=== PATIENT | male | born 1935 ===

== ENCOUNTER → 2021-07-29 12:55 | Outpatient (BNVA) | payer MEDICARE, SELFPAY | PROVIDERS: Visit Provider Surgery | DX: Z13.89 Encounter for screening for other disorder (principal) ==

== ENCOUNTER 2022-01-21 13:19 | Outpatient (REF) | payer MEDICARE, OTHER, SELFPAY ==
[2022-01-21 13:24] LABS: MANUAL DIFF FLAG NO
[2022-01-21 14:07] LABS: Basophils Absolute Auto 0.1 X10*3/uL (0.0-0.2); Basophils Percent Auto 0.6 % (0-2); Eosinophils Percent Auto 0.1 % (0-4); Hematocrit 33.4 % (42.0-52.0); Hemoglobin 10.8 g/dl (14.0-18.0); Imm Gran Abs Auto 0.07 X10*3/uL (0.00-0.03); Imm Gran Pct Auto 0.9 % (0.0-0.4); Lymphocytes Absolute Auto 0.9 X10*3/uL (1.2-4.9); Lymphocytes Percent Auto 11.1 % (20-40); Mean Corpuscular HGB Conc 32.3 g/dl (31.0-36.0); Mean Corpuscular Hemoglobin 28.7 pg (27.0-33.0); Mean Corpuscular Volume 88.8 fL (80.0-98.0); Mean Platelet Volume 10.8 fL (9.4-12.4); Monocytes Absolute Auto 1.2 X10*3/uL (0.1-1.2); Monocytes Percent Auto 15.6 % (2-11); Neutrophils Absolute Auto 5.6 x10*3/uL (2.0-8.3); Neutrophils Percent Auto 71.7 % (45-73); Platelet Count 216 X10*3/uL (160-400); Red Blood Count 3.76 X10*6/uL (4.60-5.80); Red Cell Distribution Width 17.1 % (11.0-16.0); White Blood Count 7.8 X10*3/uL (4.8-10.8)
[2022-01-21 14:12] LABS: Anion Gap 18 (12-20); Blood Urea Nitrogen 38 mg/dL (9-16); Calcium 9.1 mg/dL (8.4-10.2); Carbon Dioxide 27 mmol/L (22-29); Chloride 100 mmol/L (96-108); Estimated Glomerular Filt Rate > 60; Glucose Random 113 mg/dL (60-115); Potassium 4.3 mmol/L (3.3-5.1); Sodium 141 mmol/L (135-145)
== END 2022-01-21 13:20 | disposition home or self-care (01) ==
LOC: HO.HSH1N 13:19
PROVIDERS: Visit Provider Internal Medicine
DX: U07.1 COVID-19 (principal)
CPT/HCPCS: 36415; 80048; 85025

== ENCOUNTER → 2022-02-07 12:59 | Outpatient (BNVA) | payer MEDICARE, OTHER, SELFPAY | PROVIDERS: Visit Provider Urology | DX: N40.1 Benign prostatic hyperplasia with lower urinary tract symptoms (principal); N13.8 Other obstructive and reflux uropathy; R35.0 Frequency of micturition; R33.8 Other retention of urine; Z79.899 Other long term (current) drug therapy | CPT/HCPCS: Q3014 ==

== ENCOUNTER 2022-02-14 06:03 | Outpatient (REF) | payer MEDICARE, OTHER, SELFPAY ==
[2022-02-14 13:25] LABS: Folate 9.4 ng/mL (> or = 4.0)
[2022-02-14 13:30] LABS: Vitamin B12 589 pg/mL (200-900)
== END 2022-02-14 06:04 | disposition home or self-care (01) ==
LOC: HO.HSH3W 06:03
PROVIDERS: Visit Provider Nurse Practitioner
DX: R20.2 Paresthesia of skin (principal)
CPT/HCPCS: 36415; 82607; 82746

== ENCOUNTER → 2022-04-03 10:53 | Outpatient (BNVA) | payer MEDICARE, SELFPAY | PROVIDERS: Visit Provider Surgery | DX: K94.23 Gastrostomy malfunction (principal) | CPT/HCPCS: 43762; 99212 ==

== ENCOUNTER 2022-06-11 07:44 | Outpatient (REF) | payer MEDICARE, SELFPAY ==
[2022-06-11 07:56] LABS: Hematocrit 30.7 % (42.0-52.0); Hemoglobin 9.9 g/dl (14.0-18.0); Mean Corpuscular HGB Conc 32.2 g/dl (31.0-36.0); Mean Corpuscular Hemoglobin 29.4 pg (27.0-33.0); Mean Corpuscular Volume 91.1 fL (80.0-98.0); Mean Platelet Volume 10.4 fL (9.4-12.4); Platelet Count 213 X10*3/uL (160-400); Red Blood Count 3.37 X10*6/uL (4.60-5.80); White Blood Count 5.1 X10*3/uL (4.8-10.8)
== END 2022-06-11 07:45 | disposition home or self-care (01) ==
LOC: HO.HSH3W 07:44
PROVIDERS: Visit Provider Nurse Practitioner Acute Care
DX: D64.9 Anemia, unspecified (principal)
CPT/HCPCS: 36415; 85027

== ENCOUNTER 2022-06-11 15:55 | Emergency (ER) | payer OTHER, MEDICARE, SELFPAY ==
--- NOTE | ~2022-06-11 | CT_ITS ---
EXAMINATION: CT GI bleed abdomen pelvis without/with contrast and delayed imaging. CLINICAL INDICATIONS: GI bleed. COMPARISON: CT abdomen pelvis without contrast 07/13/2021. TECHNIQUE: 5 mm thin axial and reformatted 2 minutes thin sagittal and coronal images of abdomen pelvis were obtained without contrast followed by 100 mL of IV contrast and delayed 2 Limited imaging. DLP 1097 mGy/cm. This CT examination was performed using dose optimization technique as appropriate, variously including the following: Automated exposure control Adjustment of MA and/or KV according to patient size(this includes techniques or standardized protocols for targeted exams where dose is matched to indication/reason for exam; extremities or head. Use of iterative reconstruction techniques. FINDINGS: LUNG BASES: Focal atelectatic changes are seen right lung base.. Heart size is normal. There is mild coronary artery calcifications. LIVER, DUCTS AND GALLBLADDER: The liver is normal size, contour and density. There is no focal enhancing lesion, cyst or intrahepatic ductal dilatation. There is solitary gallstone without wall thickening. SPLEEN: Unremarkable. PANCREAS: The pancreas is atrophic and unremarkable. ADRENAL GLANDS: Unremarkable. KIDNEYS AND URETERS: Both kidneys are lobulated with cortical thinning. There are multiple nonenhancing renal cysts. The largest cyst in the upper pole left kidney measures 7.4 x 6.9 x 9.1 cm. There is no hydronephrosis. Lymphovascular structures: There is a dilated abdominal aorta consistent with large aneurysm mid segment measuring 4.4 x 5.5 x 8.1 cm. The effusion extends distally above the bifurcation. No periaortic active bleeding or scarring seen. There is extensive calcification of abdominal aorta and bilateral common iliac and internal iliac vessels. GI tract: There is diffuse colonic diverticulosis, stool and gas in the colon without distention. There is no visible mural thickening or pericolic fat stranding.. There is no extravasation or pooling of contrast seen in the colon or small bowel loops to suspect any site of bleed. There is a gastrostomy tube in the stomach. Abdominal wall: There is no evidence of hernia. Pelvis: The prostate gland is significantly enlarged extending into the base of bladder. There is mild bladder wall thickening but no radiopaque calculi seen. The bladder is nondistended. No free fluid. No abnormal pelvic or inguinal lymph nodes seen. Osseous structures: There is grade 1 retrolisthesis L3 over L4 and grade 1 anterolisthesis L4-L5. There are degenerative disc changes with spondylosis at every disc level. No aggressive lytic or sclerotic process seen. CT/CT gi bleed abd pel wo/w IVcon IMPRESSION: There is no acute GI bleeding seen. Diffuse colonic diverticulosis most prominent sigmoid and descending colon without any diverticulitis. Bilateral renal cysts and cortical thinning but no radiopaque calculi or hydroureteronephrosis. Solitary gallstone without wall thickening. 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
[2022-06-11 16:04] VITALS: BP 134/64; BP 139/89; PULSE 63; PULSE 86; RESP 16; TEMP 37; O2SAT 96; O2SAT 97; BMI 24.0
[2022-06-11 16:27] LABS: MANUAL DIFF FLAG NO
--- NOTE | 2022-06-11 16:27 | ED.GIBLEED ---
HPI - GI Bleed General Chief complaint: GI Bleed Stated complaint: blood stool Time Seen by Provider: 06/11/22 16:16 Source: patient Mode of arrival: ambulatory Limitations: no limitations History of Present Illness HPI Narrative: [facility] of COPD status post G-tube placement CVA, COPD comes here for rectal bleeding for last 2 days denies any abdominal pain or in the rectum no fever or chills no history of GI bleed in the past patient not on any anti coag Related Data Home Medications Medication Instructions Recorded Confirmed carboxymethylcellulose sodium 1 % 1 drp ophthalmic (eye) TID 04/11/21 04/03/22 eye drops hydroxyzine HCl 25 mg tablet 25 mg PO DAILY PRN Itching 04/11/21 04/03/22 ipratropium bromide 17 2 puff inhalation QID 04/11/21 04/03/22 mcg/actuation HFA aerosol inhaler lorazepam 0.5 mg tablet 0.5 mg PO BID 04/11/21 04/03/22 magnesium hydroxide 400 mg/5 mL 30 ml PO BEDTIME PRN Constipation 04/11/21 04/03/22 oral suspension methocarbamol 500 mg tablet 500 mg PO BID PRN Spasms 04/11/21 04/03/22 ondansetron HCl 4 mg tablet 4 mg PO Q8H PRN Nausea 04/11/21 04/03/22 Omeprazole 2 Mg/Ml Susp 20 mg G-tube BID 07/13/21 04/03/22 amlodipine 5 mg tablet 5 mg feeding tube DAILY 07/13/21 04/03/22 furosemide 10 mg/mL oral solution 20 mg feeding tube DAILY 07/13/21 04/03/22 lorazepam 0.5 mg tablet 0.5 mg PO DAILY PRN Anxiety 07/13/21 04/03/22 Previous Rx's Medication Instructions Recorded apixaban 2.5 mg tablet (Eliquis) 2.5 mg G-tube BID #60 tabs 04/19/21 aspirin 81 mg chewable tablet 81 mg G-tube DAILY #30 tabs 04/19/21 atorvastatin 40 mg tablet 40 mg G-tube BEDTIME #30 tabs 04/19/21 finasteride 5 mg tablet 5 mg PO DAILY 90 days #90 tabs 02/07/22 Allergies Allergy/AdvReac Type Severity Reaction Status Date / Time No Known Allergies Allergy Verified 04/03/22 11:09 Review of Systems Review of Systems: Yes all other systems are reviewed and are negative [facility] Past Medical History Medical History Complication of feeding tube COPD (chronic obstructive pulmonary disease) Diabetes mellitus Hypertension Left pontine stroke Malfunction of gastrostomy tube Paroxysmal atrial fibrillation Peritonitis Smoker Stroke Social History Social History Household Members: Other Housing: [facility] Other:: [facility] Do you presently have visiting nurse or other home services: Yes Alcohol intake: never Patient Tobacco Use Status: Former Tobacco user Quit Date: 01/2021 Tobacco use type: Cigarette Smoked in Last 30 Days: No Use of substances other than those prescribed or required for medical reasons: No Advance Directives: Yes Advance Directives on File: Yes Advance Directives Date on File: 04/20/21 service: Yes Current occupational status: retired Physical Exam Vital Signs: Vital Signs: Last Vital Signs Temp 98.6 F 06/11/22 16:04 Pulse 63 06/11/22 16:04 Resp 16 06/11/22 16:04 BP 134/64 06/11/22 16:04 Pulse Ox 96 06/11/22 16:04 O2 Del Method Room Air 06/11/22 16:04 BMI result Body Mass Index 24.0 Appearance: Alert. Oriented X3. No acute distress. Eyes: No pallor or icterus ENT: Pharynx normal. Oral Mucosa moist Neck: Normal inspection. Neck supple. CVS: Normal heart rate and rhythm. Pulses normal. Respiratory: No respiratory distress. Equal air entry bilateral, no wheezing/rales/rhonchi Abdomen: Soft and nontender. Bowel sounds are present, no mass palpable, no CVA tenderness rectal: Maroon blood on the finger no stool Skin: Skin warm and dry. Normal skin color. Normal skin turgor. Extremities: No lower extremity edema. No calf tenderness Neuro: Oriented X 3. No motor deficit. No sensory deficit.No cerebellar signs , cranial nerves II-XII intact Medications Administered Discontinued Medications Generic Name Dose Route Start Last Admin Trade Name Freq PRN Reason Stop Dose Admin Iohexol 100 ml 06/11/22 17:09 06/11/22 17:09 Iohexol 350 Mg/Ml 100 Ml Infus..Btl IV 06/11/22 17:10 85 ml ONCE ONE Administration Medical Decision Making Medical Decision Making [facility] Narrative: Patient stable H&H . was 9.9/30.7 in the a.m. no active rectal bleeding the ER bleeding scan of the abdomen was negative for any significant bleed. Patient vitals are stable not on any anticoagulants discharge patient back to [facility] advised to continue G-tube feeding and report to the ER if recurrence of bleeding Lab Data [facility] Lab Attestation statement: I reviewed the patient's lab results. 06/11/22 16:20 06/11/22 16:20 Labs: Lab Results 06/11/22 06/11/22 06/11/22 Range/Units 16:20 16:20 17:45 WBC 5.0 (4.8-10.8) X10*3/uL RBC 3.59 L (4.60-5.80) X10*6/uL Hgb 10.2 L (14.0-18.0) g/dl Hct 32.0 L (42.0-52.0) % MCV 89.1 (80.0-98.0) fL MCH 28.4 (27.0-33.0) pg MCHC 31.9 (31.0-36.0) g/dl RDW 15.9 (11.0-16.0) % Plt Count 201 (160-400) X10*3/uL MPV 9.9 (9.4-12.4) fL Immature Gran % (Auto) 0.6 H (0.0-0.4) % Neut % (Auto) 60.0 (45-73) % Lymph % (Auto) 22.5 (20-40) % [place] % (Auto) 12.1 H (2-11) % Eos % (Auto) 3.8 (0-4) % Baso % (Auto) 1.0 (0-2) % Lymph # (Auto) 1.1 L (1.2-4.9) X10*3/uL [place] # (Auto) 0.6 (0.1-1.2) X10*3/uL Eos # (Auto) 0.2 (0.0-0.4) X10*3/uL Baso # (Auto) 0.1 (0.0-0.2) X10*3/uL Abs Immat Gran (auto) 0.03 (0.00-0.03) X10*3/uL Absolute Neuts (auto) 3.0 (2.0-8.3) x10*3/uL Absolute Nucleated RBC 0.000 (0.0-0.012) X10*3/uL Nucleated RBC % (auto) 0.0 (0.0-0.2) /100WBC Sodium 139 (135-145) mmol/L Potassium 4.0 (3.3-5.1) mmol/L Chloride 102 (96-108) mmol/L Carbon Dioxide 27 (22-29) mmol/L Anion Gap 14 (12-20) BUN 32 H (9-16) mg/dL Creatinine 1.07 (0.5-1.4) mg/dL Estim Creat Clear Calc 43.0 Estimated GFR > 60 Random Glucose 108 (60-115) mg/dL Calcium 8.7 (8.4-10.2) mg/dL Total Bilirubin 0.7 (0.0-1.0) mg/dL AST 33 (5-37) U/L ALT 27 (0-40) U/L Alkaline Phosphatase 118 H (39-117) U/L Total Protein 6.7 (6.5-8.0) g/dL Albumin 3.8 (3.5-5.0) g/dL Stool Occult Blood POSITIVE (NEGATIVE) Discharge Plan Discharge Clinical Impression: Hematochezia Patient Disposition: Xfer [facility] Transfer Details: abdominal bleeding scan was negative, no active rectal bleeding the ER repeat H&H stable Instructions: Rectal Bleeding (ED) Additional Instructions: GI bleeding transient likely from diverticular Report to the ER if worsening of rectal bleed Resume G-tube feeding Prescriptions: No Action methocarbamol 500 mg Tablet 500 mg PO BID PRN (Reason: Spasms) ondansetron HCl 4 mg Tablet 4 mg PO Q8H PRN (Reason: Nausea) lorazepam 0.5 mg Tablet 0.5 mg PO BID magnesium hydroxide 400 mg/5 mL Suspension 30 ml PO BEDTIME PRN (Reason: Constipation) hydroxyzine HCl 25 mg Tablet 25 mg PO DAILY PRN (Reason: Itching) ipratropium bromide 17 mcg/actuation Hfa Aerosol Inhaler 2 puff INHALATION QID carboxymethylcellulose sodium 1 % Drops 1 drp OPHTHALMIC (EYE) TID atorvastatin 40 mg Tablet 40 mg G-tube BEDTIME Qty: 30 0RF aspirin 81 mg Tablet,Chewable 81 mg G-tube DAILY Qty: 30 0RF Eliquis 2.5 mg Tablet 2.5 mg G-tube BID Qty: 60 0RF furosemide 10 mg/mL Solution 20 mg feeding tube DAILY lorazepam 0.5 mg Tablet 0.5 mg PO DAILY PRN (Reason: Anxiety) Omeprazole 2 Mg/Ml Susp 2 mg/ml suspension 20 mg G-tube BID amlodipine 5 mg tablet 5 mg feeding tube DAILY Protocol: Hold for SBP< HOLD for SBP < : 90 finasteride 5 mg tablet 5 mg PO DAILY 90 Days Qty: 90 1RF
[2022-06-11 16:29] LABS: Basophils Absolute Auto 0.1 X10*3/uL (0.0-0.2); Eosinophils Absolute Auto 0.2 X10*3/uL (0.0-0.4); Eosinophils Percent Auto 3.8 % (0-4); Hemoglobin 10.2 g/dl (14.0-18.0); Imm Gran Abs Auto 0.03 X10*3/uL (0.00-0.03); Imm Gran Pct Auto 0.6 % (0.0-0.4); Lymphocytes Absolute Auto 1.1 X10*3/uL (1.2-4.9); Lymphocytes Percent Auto 22.5 % (20-40); Mean Corpuscular HGB Conc 31.9 g/dl (31.0-36.0); Mean Corpuscular Hemoglobin 28.4 pg (27.0-33.0); Mean Corpuscular Volume 89.1 fL (80.0-98.0); Mean Platelet Volume 9.9 fL (9.4-12.4); Monocytes Absolute Auto 0.6 X10*3/uL (0.1-1.2); Monocytes Percent Auto 12.1 % (2-11); Platelet Count 201 X10*3/uL (160-400); Red Blood Count 3.59 X10*6/uL (4.60-5.80); Red Cell Distribution Width 15.9 % (11.0-16.0)
--- NOTE | 2022-06-11 16:40 | PC.NURSE ---
Patient has a G-tube intact to his abdomen; patient states that his last tube feed was last night. Area is clean with dressing over the area. Patient without any other complaints at this time.
[2022-06-11 16:43] LABS: Alanine Aminotransferase 27 U/L (0-40); Albumin Level 3.8 g/dL (3.5-5.0); Alkaline Phosphatase 118 U/L (39-117); Anion Gap 14 (12-20); Aspartate Amino Transferase 33 U/L (5-37); Bilirubin Total 0.7 mg/dL (0.0-1.0); Blood Urea Nitrogen 32 mg/dL (9-16); Calcium 8.7 mg/dL (8.4-10.2); Carbon Dioxide 27 mmol/L (22-29); Chloride 102 mmol/L (96-108); Estimated Glomerular Filt Rate > 60; Glucose Random 108 mg/dL (60-115); Sodium 139 mmol/L (135-145); Total Protein 6.7 g/dL (6.5-8.0)
[2022-06-11] MEDS: iohexoL 350 MG/ML 100 ML INFUS..BTL IV (17:09)
[2022-06-11 17:51] LABS: OBS Int Ctl Valid YES; OBS1 POSITIVE (NEGATIVE)
[2022-06-11 21:44] VITALS: BP 127/73; PULSE 69; RESP 18; TEMP 36.4; O2SAT 96
--- NOTE | 2022-06-11 21:45 | MHC.EDTECH ---
pt changed and cleaned new linen provided
== END 2022-06-11 23:50 | disposition skilled nursing facility (03) ==
PROVIDERS: Emergency Provider Internal Medicine; PCP Internal Medicine
DX: K92.1 Melena (principal); J44.9 Chronic obstructive pulmonary disease, unspecified; I10 Essential (primary) hypertension; Z79.899 Other long term (current) drug therapy; Z87.891 Personal history of nicotine dependence
CPT/HCPCS: 36415; 74178; 80053; 82272; 85025; 99284; Q9967

== ENCOUNTER 2022-06-12 09:08 | Outpatient (REF) | payer MEDICARE, SELFPAY ==
[2022-06-12 09:26] LABS: INTERNATIONAL NORM RATIO 1.2 (0.9-1.1); Prothrombin Time 14.3 SEC (10.0-13.1)
== END 2022-06-12 09:09 | disposition home or self-care (01) ==
LOC: HO.HSH3W 09:08
PROVIDERS: Visit Provider Nurse Practitioner Acute Care
DX: K92.2 Gastrointestinal hemorrhage, unspecified (principal)
CPT/HCPCS: 36415; 85610

== ENCOUNTER 2022-06-14 07:10 | Outpatient (REF) | payer MEDICARE, SELFPAY ==
[2022-06-15 07:26] LABS: OBS Int Ctl Valid YES; OBS1 POSITIVE (NEGATIVE)
[2022-06-15 07:33] LABS: OBS Int Ctl Valid YES; OBS1 POSITIVE (NEGATIVE)
== END 2022-06-14 07:11 | disposition home or self-care (01) ==
LOC: HO.HSH3W 07:10
PROVIDERS: Visit Provider Nurse Practitioner
DX: K92.2 Gastrointestinal hemorrhage, unspecified (principal)
CPT/HCPCS: 82272

== ENCOUNTER 2022-06-21 09:03 | Outpatient (REF) | payer MEDICARE, SELFPAY ==
[2022-06-21 09:14] LABS: OBS Int Ctl Valid YES; OBS1 NEGATIVE (NEGATIVE)
== END 2022-06-21 09:04 | disposition home or self-care (01) ==
LOC: HO.HSH3W 09:03
PROVIDERS: Visit Provider Nurse Practitioner
DX: D64.9 Anemia, unspecified (principal)
CPT/HCPCS: 82272

== ENCOUNTER 2022-06-22 05:32 | Outpatient (REF) | payer MEDICARE, SELFPAY ==
[2022-06-22 05:36] LABS: MANUAL DIFF FLAG NO
[2022-06-22 05:39] LABS: Basophils Percent Auto 0.7 % (0-2); Eosinophils Absolute Auto 0.2 X10*3/uL (0.0-0.4); Eosinophils Percent Auto 4.3 % (0-4); Hematocrit 30.4 % (42.0-52.0); Hemoglobin 9.8 g/dl (14.0-18.0); Imm Gran Abs Auto 0.03 X10*3/uL (0.00-0.03); Imm Gran Pct Auto 0.6 % (0.0-0.4); Lymphocytes Percent Auto 18.7 % (20-40); Mean Corpuscular HGB Conc 32.2 g/dl (31.0-36.0); Mean Corpuscular Hemoglobin 29.3 pg (27.0-33.0); Mean Corpuscular Volume 90.7 fL (80.0-98.0); Mean Platelet Volume 10.2 fL (9.4-12.4); Monocytes Absolute Auto 0.8 X10*3/uL (0.1-1.2); Monocytes Percent Auto 14.4 % (2-11); Neutrophils Absolute Auto 3.3 x10*3/uL (2.0-8.3); Neutrophils Percent Auto 61.3 % (45-73); Platelet Count 201 X10*3/uL (160-400); Red Blood Count 3.35 X10*6/uL (4.60-5.80); Red Cell Distribution Width 16.2 % (11.0-16.0); White Blood Count 5.4 X10*3/uL (4.8-10.8)
[2022-06-22 05:46] LABS: INTERNATIONAL NORM RATIO 1.1 (0.9-1.1); Prothrombin Time 12.4 SEC (10.0-13.1)
== END 2022-06-22 05:33 | disposition home or self-care (01) ==
LOC: HO.HSH3W 05:32
PROVIDERS: Visit Provider Nurse Practitioner Acute Care
DX: D64.9 Anemia, unspecified (principal); K92.2 Gastrointestinal hemorrhage, unspecified
CPT/HCPCS: 36415; 85025; 85610

== ENCOUNTER 2022-07-03 06:34 | Outpatient (REF) | payer MEDICARE, SELFPAY ==
[2022-07-03 06:36] LABS: MANUAL DIFF FLAG NO
[2022-07-03 06:59] LABS: Basophils Absolute Auto 0.1 X10*3/uL (0.0-0.2); Eosinophils Absolute Auto 0.2 X10*3/uL (0.0-0.4); Eosinophils Percent Auto 4.6 % (0-4); Hemoglobin 9.6 g/dl (14.0-18.0); Imm Gran Abs Auto 0.04 X10*3/uL (0.00-0.03); Imm Gran Pct Auto 0.8 % (0.0-0.4); Lymphocytes Absolute Auto 0.9 X10*3/uL (1.2-4.9); Mean Corpuscular Volume 90.6 fL (80.0-98.0); Mean Platelet Volume 10.9 fL (9.4-12.4); Monocytes Absolute Auto 0.6 X10*3/uL (0.1-1.2); Monocytes Percent Auto 12.9 % (2-11); Neutrophils Percent Auto 61.7 % (45-73); Platelet Count 269 X10*3/uL (160-400); Red Blood Count 3.31 X10*6/uL (4.60-5.80); Red Cell Distribution Width 15.9 % (11.0-16.0); White Blood Count 4.8 X10*3/uL (4.8-10.8)
[2022-07-03 07:24] LABS: Iron 34 mcg/dL (45-160); Percent Iron Saturation 15 % (15-50); Total Iron Binding Capacity 230 mcg/dL (228-428); Unsaturated Iron Binding 196 ug/dL
[2022-07-03 07:39] LABS: Ferritin 91 ng/mL (20-250)
== END 2022-07-03 06:35 | disposition home or self-care (01) ==
LOC: HO.HSH3W 06:34
PROVIDERS: Visit Provider Nurse Practitioner
DX: D64.9 Anemia, unspecified (principal)
CPT/HCPCS: 36415; 82728; 83540; 85025

== ENCOUNTER 2022-08-01 05:10 | Outpatient (REF) | payer MEDICARE, SELFPAY ==
[2022-08-01 05:59] LABS: MANUAL DIFF FLAG NO
[2022-08-01 06:02] LABS: Basophils Absolute Auto 0.1 X10*3/uL (0.0-0.2); Basophils Percent Auto 1.1 % (0-2); Eosinophils Absolute Auto 0.2 X10*3/uL (0.0-0.4); Eosinophils Percent Auto 4.4 % (0-4); Hematocrit 28.9 % (42.0-52.0); Hemoglobin 9.4 g/dl (14.0-18.0); Imm Gran Abs Auto 0.03 X10*3/uL (0.00-0.03); Imm Gran Pct Auto 0.7 % (0.0-0.4); Lymphocytes Absolute Auto 0.9 X10*3/uL (1.2-4.9); Lymphocytes Percent Auto 19.5 % (20-40); Mean Corpuscular HGB Conc 32.5 g/dl (31.0-36.0); Mean Corpuscular Hemoglobin 29.7 pg (27.0-33.0); Mean Corpuscular Volume 91.5 fL (80.0-98.0); Mean Platelet Volume 10.5 fL (9.4-12.4); Monocytes Absolute Auto 0.6 X10*3/uL (0.1-1.2); Monocytes Percent Auto 12.9 % (2-11); Neutrophils Absolute Auto 2.8 x10*3/uL (2.0-8.3); Neutrophils Percent Auto 61.4 % (45-73); Platelet Count 219 X10*3/uL (160-400); Red Blood Count 3.16 X10*6/uL (4.60-5.80); Red Cell Distribution Width 16.5 % (11.0-16.0); White Blood Count 4.6 X10*3/uL (4.8-10.8)
[2022-08-01 06:39] LABS: Ferritin 80 ng/mL (20-250)
== END 2022-08-01 05:11 | disposition home or self-care (01) ==
LOC: HO.HSH3W 05:10
PROVIDERS: Visit Provider Nurse Practitioner
DX: D64.9 Anemia, unspecified (principal)
CPT/HCPCS: 36415; 82728; 85025

== ENCOUNTER → 2022-08-08 13:32 | Outpatient (BNVA) | payer MEDICARE, SELFPAY | PROVIDERS: PCP Internal Medicine; Visit Provider Urology | DX: N40.1 Benign prostatic hyperplasia with lower urinary tract symptoms (principal); N13.8 Other obstructive and reflux uropathy; R33.9 Retention of urine, unspecified | CPT/HCPCS: Q3014 ==

== ENCOUNTER 2022-10-23 13:51 | Outpatient (AMB) | payer MEDICARE, SELFPAY ==
--- NOTE | 2022-10-23 13:55 | A.OFFVIS_ITS ---
Intake Vital Signs 10/23/22 14:06 Height 5 ft 6 in Weight 141 lb BMI 22.8 BP 130/69 Blood Pressure Location Rt brachial Position Sitting Pulse 64 Intake Visit Reasons: g-tube replacement Intake Note: Patient here for G- tube replacement. Current tube not working since this morning. Nurses tried for about 45 minutes but unable to get it to work properly. [employer] Mechanic Required: No Accompanied by: Nursisng certified dental assistant Allergies No Known Allergies Allergy (Verified 10/23/22 14:09) Medication List - Last Reconciled 10/23/22 by Gael Campos MD amlodipine 5 mg See Protocol feeding tube DAILY apixaban (Eliquis) 2.5 mg G-tube BID aspirin 81 mg G-tube DAILY atorvastatin 40 mg G-tube BEDTIME carboxymethylcellulose sodium 1% 1 drp ophthalmic (eye) TID finasteride 5 mg PO DAILY 90 days furosemide 20 mg feeding tube DAILY hydroxyzine HCl 25 mg PO DAILY PRN ipratropium bromide 17 mcg/actuation 2 puffs inhalation QID lorazepam 0.5 mg PO BID lorazepam 0.5 mg PO DAILY PRN magnesium hydroxide 30 mL PO BEDTIME PRN methocarbamol 500 mg PO BID PRN [Omeprazole 2 Mg/Ml Susp 20 mg G-tube BID] ondansetron HCl 4 mg PO Q8H PRN HPI g-tube replacement HPI Details 87-year-old male here for a G-tube replacement. He has had G-tube since 2020 for dysphagia. He had this revised in 2021 as he this had become dislodged He has had no issues with his G-tube but this morning, this was plugged in so is sent to the office for replacement. He denies GI complaints. [facility] Medical History Complication of feeding tube COPD (chronic obstructive pulmonary disease) Diabetes mellitus Hypertension Left pontine stroke Malfunction of gastrostomy tube Paroxysmal atrial fibrillation Peritonitis Smoker Stroke Social History Household Members: Other Housing: [facility] Other:: [facility] Do you presently have visiting nurse or other home services: Yes Alcohol intake: never Patient Tobacco Use Status: Former Tobacco user Quit Date: 01/2021 Tobacco use type: Cigarette Advance Directives Date on File: 04/20/21 service: Yes Current occupational status: retired Review of Systems Const Denies chills and Denies fever(s) Card Denies chest pain at rest Resp Reports cough GI Denies abdominal pain Denies difficulty urinating Physical Exam Vital Signs: Last Vital Signs Pulse 64 10/23/22 14:06 BP 130/69 10/23/22 14:06 BMI result Body Mass Index 22.8 Const Other: On wheelchair General: comfortable and no acute distress Resp Effort & Inspection: normal respiratory effort Cardio Rate: regular rate GI Other: Old G-tube in place, well-formed tract Assessment & Plan Assessment & Plan (1) Malfunction of gastrostomy tube: Code(s): K94.23 - Gastrostomy malfunction Plan: He was sent because of a clogged G-tube. I desufflated the balloon and pulled this out without difficulty. I was able to replaced this with a #18 replacement tube without difficulty. The balloon was insufflated. He denied any pain afterwards He is welcome to come back to the office on a p.r.n. basis down the line for tube replacement. Coding Level of Care Code Est Pt Level 3 (50160) Diagnoses Malfunction of gastrostomy tube K94.23
[2022-10-23 14:06] VITALS: BP 130/69; PULSE 64; BMI 22.8
== END 2022-10-23 14:19 | disposition home or self-care (01) ==
PROVIDERS: PCP Internal Medicine; Visit Provider Surgery
DX: K94.23 Gastrostomy malfunction (principal)
CPT/HCPCS: 99213

== ENCOUNTER → 2022-10-23 13:51 | Outpatient (BNVA) | payer MEDICARE, SELFPAY | PROVIDERS: PCP Internal Medicine; Visit Provider Surgery | DX: K94.23 Gastrostomy malfunction (principal); R13.10 Dysphagia, unspecified | CPT/HCPCS: 99212 ==

== ENCOUNTER 2023-01-27 06:05 | Inpatient (IN) | payer OTHER, MEDICARE, SELFPAY ==
[2023-01-27] VITALS (14 sets, daily range): BP systolic 125–149; BP diastolic 68–80; PULSE 62–83; RESP 12–23; TEMP 36.3–36.7; O2SAT 97–99; BMI 22.4
--- NOTE | 2023-01-27 | ECG_ITS ---
Test Reason : gi bleed Blood Pressure : / mmHG Vent. Rate : 062 BPM Atrial Rate : 062 BPM P-R Int : 234 ms QRS Dur : 100 ms QT Int : 440 ms P-R-T Axes : 002 -58 063 degrees QTc Int : 446 ms Sinus rhythm with 1st degree A-V block Left axis deviation Septal infarct , age undetermined Abnormal ECG When compared with ECG of 15-APR-2021 10:05, Premature ventricular complexes are no longer Present [place] interval has increased Septal infarct is now Present Nonspecific T wave abnormality has replaced inverted T waves in Lateral leads Referred By: Generic ED Physician Electronically Signed By:ADELA PARK MD
--- NOTE | ~2023-01-27 | XR_ITS ---
EXAMINATION: XR CHEST CLINICAL INFORMATION: Shortness of breath COMPARISON: CTA chest on 02/16/2021, CTA head and neck on 04/11/2021 TECHNIQUE: Frontal view of the chest was obtained. FINDINGS: The cardiac silhouette is normal. There is mild chronic interstitial disease there are no areas of consolidation. There are no pleural effusions or pneumothoraces. Significant enlargement of the the aortic arch/proximal descending thoracic aorta measuring up to 7.3 cm. XR/XR chest 1V IMPRESSION: 1. No acute cardiopulmonary disease. 2. Significant enlargement of the aortic arch/proximal descending thoracic aorta measuring up to 7.3 cm. There is thoracic aortic aneurysm is known from , however it appears mildly increased in size compared to those exams. Findings were discussed with Dr. Deng at 5:34pm.
--- NOTE | ~2023-01-27 | CT_ITS ---
EXAMINATION: CT ABDOMEN AND PELVIS WITHOUT AND WITH CONTRAST CLINICAL INFORMATION: Reason for Exam GI Bleed. COMPARISON: 06/11/2022. TECHNIQUE: GI bleed protocol CT of the abdomen and pelvis without and with contrast was performed. Intravenous contrast: 85 mL Omnipaque 350 No contrast reaction reported Sagittal and coronal reformatted images were obtained on the technologist workstation. Total exam dose-length product 1111 mGy-cm FINDINGS: VISUALIZED CHEST: Visualized lung bases and mediastinum are normal. No pleural effusion. LIVER, GALLBLADDER AND BILIARY TREE: The liver is normal in size, shape, and attenuation. No focal hepatic lesion or biliary ductal dilatation is present. Cholelithiasis without cholecystitis. PANCREAS: No discrete mass or ductal dilatation. SPLEEN: Normal size. No focal lesion. ADRENAL GLANDS: Normal; no mass. KIDNEYS AND URETERS: Symmetric nephrograms. Cortical thinning bilaterally. Multiple simple cysts for which no imaging follow-up is recommended. GASTROINTESTINAL TRACT: Percutaneous gastrostomy tube terminates in the stomach. Normal caliber small bowel. Severe diverticulosis of the colon. High density material in the sigmoid colon accumulates on delayed phase imaging and is not present on precontrast evaluation consistent with active extravasation into the GI lumen presumably from diverticular source. ABDOMINAL WALL: No significant hernia seen. LYMPHOVASCULAR STRUCTURES: No adenopathy. Bilobed fusiform aortic aneurysm measuring up to 6.2 cm. No evidence of rupture. This is previously this measured 6.0 cm on 06/11/2022. 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 BLADDER: No focal mass or wall thickening seen. No bladder calculi. PELVIC VISCERA: Enlarged prostate. OSSEOUS STRUCTURES: Severe degenerative changes in the spine. Grade 1 retrolisthesis L3 on L4 and grade 1 anterolisthesis L4 on L5 stable compared to prior. CT/CT gi bleed abd pel wo/w IVcon IMPRESSION: Active GI bleed in the sigmoid colon. Other findings as above. Telephone report called to Dr. Deng at 3:50 PM on 01/27/2023.
[2023-01-27 06:32] LABS: MANUAL DIFF FLAG NO
[2023-01-27 06:40] LABS: INTERNATIONAL NORM RATIO 1.3 (0.9-1.1); Prothrombin Time 15.5 SEC (11.1-13.3)
[2023-01-27 06:42] LABS: Basophils Absolute Auto 0.1 X10*3/uL (0.0-0.2); Basophils Percent Auto 1.3 % (0-2); Eosinophils Absolute Auto 0.2 X10*3/uL (0.0-0.4); Eosinophils Percent Auto 4.1 % (0-4); Hematocrit 31.8 % (42.0-52.0); Hemoglobin 10.1 g/dl (14.0-18.0); Imm Gran Abs Auto 0.05 X10*3/uL (0.00-0.03); Imm Gran Pct Auto 0.9 % (0.0-0.4); Lymphocytes Percent Auto 18.5 % (20-40); Mean Corpuscular HGB Conc 31.8 g/dl (31.0-36.0); Mean Corpuscular Hemoglobin 29.4 pg (27.0-33.0); Mean Corpuscular Volume 92.7 fL (80.0-98.0); Mean Platelet Volume 10.7 fL (9.4-12.4); Monocytes Absolute Auto 0.8 X10*3/uL (0.1-1.2); Monocytes Percent Auto 13.5 % (2-11); Neutrophils Absolute Auto 3.4 x10*3/uL (2.0-8.3); Neutrophils Percent Auto 61.7 % (45-73); Partial Thromboplastin Time 38.4 SEC (26.0-36.4); Platelet Count 234 X10*3/uL (160-400); Red Blood Count 3.43 X10*6/uL (4.60-5.80); Red Cell Distribution Width 16.5 % (11.0-16.0); White Blood Count 5.6 X10*3/uL (4.8-10.8)
[2023-01-27 06:52] LABS: Alanine Aminotransferase 34 U/L (0-40); Albumin Level 3.5 g/dL (3.5-5.0); Alkaline Phosphatase 120 U/L (39-117); Anion Gap 15 (12-20); Aspartate Amino Transferase 44 U/L (5-37); Bilirubin Total 0.4 mg/dL (0.0-1.0); Blood Urea Nitrogen 32 mg/dL (9-16); Calcium 8.7 mg/dL (8.4-10.2); Carbon Dioxide 22 mmol/L (22-29); Chloride 106 mmol/L (96-108); Creatinine Clr Calc Pharmacy 52.4; Estimated Glomerular Filt Rate > 60; Glucose Random 131 mg/dL (60-115); Potassium 4.8 mmol/L (3.3-5.1); Sodium 138 mmol/L (135-145); Total Protein 7.1 g/dL (6.5-8.0)
[2023-01-27 06:58] LABS: Troponin-I High Sensitivity 8.2 ng/L (<3.5-35.0)
--- NOTE | 2023-01-27 07:15 | ED_ITS ---
HPI - GI Bleed General Chief complaint: GI Bleed Stated complaint: blood in stool Time Seen by Provider: 01/27/23 07:08 Source: patient and EMS Mode of arrival: EMS History of Present Illness HPI Narrative: This is very pleasant 87 years old patient sent by the [facility] because of rectal bleeding. Per [facility] a the large amount of blood in the rectum . 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 rupture, COPD, GERD, atrial fibrillation, chronic kidney disease MD complaint: gross hematochezia Onset (ago): hour(s) (6) Pain Consistency: intermittent Severity: moderate Exacerbating factors: none Associated symptoms: denies other symptoms Related Data Home Medications Medication Instructions Recorded Confirmed carboxymethylcellulose sodium 1 % 1 drp ophthalmic (eye) TID 04/11/21 01/27/23 eye drops ipratropium bromide 17 2 puff inhalation QID 04/11/21 01/27/23 mcg/actuation HFA aerosol inhaler lorazepam 0.5 mg tablet 0.5 mg PO BID 04/11/21 01/27/23 magnesium hydroxide 400 mg/5 mL 30 ml PO BEDTIME PRN Constipation 04/11/21 01/27/23 oral suspension methocarbamol 500 mg tablet 500 mg PO BID PRN Spasms 04/11/21 01/27/23 ondansetron HCl 4 mg tablet 4 mg PO Q8H PRN Nausea 04/11/21 01/27/23 amlodipine 5 mg tablet 5 mg feeding tube DAILY 07/13/21 01/27/23 lorazepam 0.5 mg tablet 0.5 mg PO DAILY PRN Anxiety 07/13/21 01/27/23 acetaminophen 160 mg/5 mL (5 mL) 640 mg PO Q8H PRN Fever Or Pain 01/27/23 01/27/23 oral solution albuterol sulfate 90 mcg/actuation 2 puff inhalation Q4H PRN 01/27/23 01/27/23 aerosol inhaler Shortness Of Breath Or Wheezing docusate sodium 50 mg/5 mL oral 50 mg feeding tube DAILY 01/27/23 01/27/23 liquid esomeprazole magnesium 20 mg 20 mg feeding tube DAILY 01/27/23 01/27/23 capsule,delayed release hyoscyamine sulfate 0.125 mg 0.125 mg sublingual Q4H PRN 01/27/23 01/27/23 sublingual tablet increased saliva loperamide 2 mg tablet See Rx Instructions .Route 01/27/23 01/27/23 .COMPLEX PRN Diarrhea loratadine 10 mg tablet 10 mg feeding tube DAILY 01/27/23 01/27/23 polyvinyl alcohol 1.4 % eye drops 1 drp ophthalmic (eye) DAILY PRN 01/27/23 01/27/23 Dry Eyes sennosides 8.6 mg tablet (senna) 8.6 mg feeding tube DAILY 01/27/23 01/27/23 sertraline 25 mg tablet 25 mg feeding tube DAILY 01/27/23 01/27/23 sodium chloride 0.65 % nasal spray 2 spray intranasal DAILY PRN dry 01/27/23 01/27/23 aerosol sinuses Previous Rx's Medication Instructions Recorded apixaban 2.5 mg tablet (Eliquis) 2.5 mg G-tube BID #60 tabs 04/19/21 aspirin 81 mg chewable tablet 81 mg G-tube DAILY #30 tabs 04/19/21 atorvastatin 40 mg tablet 40 mg G-tube BEDTIME #30 tabs 04/19/21 Allergies Allergy/AdvReac Type Severity Reaction Status Date / Time No Known Allergies Allergy Verified 10/23/22 14:09 Review of Systems 2 Constitutional: Constitutional: Reports no additional constitutional complaints ENT: Reports system reviewed and no additional complaints, except as documented Cardiovascular: Cardiovascular: Reports no additional cardiovascular complaints Gastrointestinal: Gastrointestinal: Reports hematochezia [facility] Past Medical History Medical History (Updated 01/27/23 @ 10:00 by Frank Deng DO) Malfunction of gastrostomy tube Complication of feeding tube Peritonitis Paroxysmal atrial fibrillation Left pontine stroke COPD (chronic obstructive pulmonary disease) Smoker Diabetes mellitus Hypertension Stroke Social History Social History Household Members: Other Housing: [facility] Other:: [facility] Do you presently have visiting nurse or other home services: Yes Alcohol intake: never Comment: stroke protocol Patient Tobacco Use Status: Former Tobacco user Quit Date: 01/2021 Tobacco use type: Cigarette Advance Directives: Yes Advance Directives on File: Yes Advance Directives Date on File: 04/20/21 Nutrition Risks: No Nutritional Risk service: Yes Current occupational status: retired Physical Exam 2 Vital Signs: Vital Signs: Last Vital Signs Temp 97.7 F 01/27/23 10:10 Pulse 70 01/27/23 10:10 Resp 20 01/27/23 10:10 BP 130/78 01/27/23 10:10 Pulse Ox 98 01/27/23 09:50 O2 Del Method Room Air 01/27/23 09:50 BMI result Body Mass Index 22.4 Const: General: cooperative HEENT: Head: Yes normal to inspection General nose exam: Normal external nose present Face and sinus: Yes normal facial exam Mouth: Normal oral and palatal mucosa present Throat: Yes posterior oropharynx normal Neck: Neck: Yes normal visual inspection Chest: Chest palpation & inspection: normal inspection of the chest Resp: Effort & Inspection: normal respiratory effort Auscultation: clear to auscultation bilaterally Cardio: Jugular venous distension: no JVD Rate: regular rate Rhythm: r egular rhythm GI: Inspection: Yes normal to inspection Palpation (GI): Soft to palpation, not firm, nontender and no guarding Percussion: Yes normal to percussion A uscultation: normal bowel sounds Rectal Exam - Male: Yes other (blood in the rectum) Skin: General skin exam: no rashes or lesions noted, elasticity normal and turgor normal Lesions: no lesions Rashes: no rashes Course Reevaluation(s) Reevaluation #1: remain stable clinically , spoke with Hospitalist Dr Deng Time: 09:20 Medications Administered Discontinued Medications Generic Name Dose Route Start Last Admin Trade Name Freq PRN Reason Stop Dose Admin Sodium Chloride 1,000 mls @ 999 mls/hr 01/27/23 07:15 01/27/23 09:18 Ns IVCONT 01/27/23 08:15 Infused .Q1H1M CHUCKIE Infusion Medical Decision Making Medical Decision Making MDM Narrative: Patient presented with rectal bleeding will obtain labs hydrate the and reassess Differential Diagnosis Differential Diagnoses: The differential diagnosis associated with the presentation includes Diverticulitis/colitis/internal hemorrhoid/colon cancer Admission/Observation Consideration of admission/observation: Escalation of care including admission/observation considered Consult Healthcare Provider Management of the patient was discussed with: Hospitalist Lab Data 01/27/23 06:27 01/27/23 06:27 Labs: Lab Results 01/27/23 01/27/23 Range/Units 06:27 07:15 WBC 5.6 (4.8-10.8) X10*3/uL RBC 3.43 L (4.60-5.80) X10*6/uL Hgb 10.1 L (14.0-18.0) g/dl Hct 31.8 L (42.0-52.0) % MCV 92.7 (80.0-98.0) fL MCH 29.4 (27.0-33.0) pg MCHC 31.8 (31.0-36.0) g/dl RDW 16.5 H (11.0-16.0) % Plt Count 234 (160-400) X10*3/uL MPV 10.7 (9.4-12.4) fL Immature Gran % (Auto) 0.9 H (0.0-0.4) % Neut % (Auto) 61.7 (45-73) % Lymph % (Auto) 18.5 L (20-40) % [place] % (Auto) 13.5 H (2-11) % Eos % (Auto) 4.1 H (0-4) % Baso % (Auto) 1.3 (0-2) % Lymph # (Auto) 1.0 L (1.2-4.9) X10*3/uL [place] # (Auto) 0.8 (0.1-1.2) X10*3/uL Eos # (Auto) 0.2 (0.0-0.4) X10*3/uL Baso # (Auto) 0.1 (0.0-0.2) X10*3/uL Abs Immat Gran (auto) 0.05 H (0.00-0.03) X10*3/uL Absolute Neuts (auto) 3.4 (2.0-8.3) x10*3/uL Absolute Nucleated RBC 0.000 (0.0-0.012) X10*3/uL Nucleated RBC % (auto) 0.0 (0.0-0.2) /100WBC PT 15.5 H (11.1-13.3) SEC INR 1.3 H (0.9-1.1) APTT 38.4 H (26.0-36.4) SEC Sodium 138 (135-145) mmol/L Potassium 4.8 (3.3-5.1) mmol/L Chloride 106 (96-108) mmol/L Carbon Dioxide 22 (22-29) mmol/L Anion Gap 15 (12-20) BUN 32 H (9-16) mg/dL Creatinine 0.92 (0.5-1.4) mg/dL Estim Creat Clear Calc 52.4 Estimated GFR > 60 Random Glucose 131 H (60-115) mg/dL Calcium 8.7 (8.4-10.2) mg/dL Total Bilirubin 0.4 (0.0-1.0) mg/dL AST 44 H (5-37) U/L ALT 34 (0-40) U/L Alkaline Phosphatase 120 H (39-117) U/L Troponin I High Sens 8.2 (<3.5-35.0) ng/L Total Protein 7.1 (6.5-8.0) g/dL Albumin 3.5 (3.5-5.0) g/dL Stool Occult Blood POSITIVE (NEGATIVE) Blood Type O Positive Antibody Screen NEGATIVE Independent Interpretation I performed an independent interpretation of an: EKG (nSR no ischemic changes) Independent Historian Clinical information obtained from an independent historian. History obtained from or confirmed by: Other ([facility] record) External Record Review External record reviewed: Outpatient record Chronic Conditions Patient?s care impacted by: Other (PAF on eliquis) Discharge Plan Discharge Clinical Impression: GI bleed Qualifiers: GI bleed type/associated pathology: unspecified gastrointestinal hemorrhage type Qualified Code(s): K92.2 - Gastrointestinal hemorrhage, unspecified Patient Disposition: Admitted As Inpatient
[2023-01-27 07:26] LABS: OBS Int Ctl Valid YES; OBS1 POSITIVE (NEGATIVE)
[2023-01-27] MEDS: 0.9 % Sodium Chloride 1,000 ML 999 ML IVCONT (07:39)
--- NOTE | 2023-01-27 07:41 | PC.NURSE ---
Alert and oriented. had BM with moderate amount of bright red blood. Fluids running per order. Denies dizziness or lightheadedness.
--- NOTE | 2023-01-27 09:19 | PC.NURSE ---
Patient with anotehr large loose stool with bright red blood, providers aware. Denies dizziness or lightheadedness, reports feeling weak.
--- NOTE | 2023-01-27 09:26 | PC.NURSE ---
Assumed care of pt at this time; all safety measures in place.
--- NOTE | 2023-01-27 09:50 | PM.IMHP ---
History of Present Illness Date of Service: 01/27/23 Chief Complaint: LGIB 87-year-old male with past medical history significant for paroxysmal atrial fibrillation on Eliquis, CVA with dysphagia requiring G-tube insertion, hypertension press with approximately 2 days of bright red blood per rectum. Per patient in the days prior to his bleeding, stool was soft/normal and brown. Patent noted small amounts of blood 2 days ago but this a.m. staff noted he was filling the commode with blood. In the emergency room initial hemoglobin was stable at 10 despite 1 large BM mostly clots. Review of Systems Review of Systems: Denies chest pain Denies shortness of breath Denies nausea vomiting diarrhea Denies fever chills [facility] Medical History (Updated 01/27/23 @ 10:00 by Frank Deng DO) Malfunction of gastrostomy tube Complication of feeding tube Peritonitis Paroxysmal atrial fibrillation Left pontine stroke COPD (chronic obstructive pulmonary disease) Smoker Diabetes mellitus Hypertension Stroke Social History Household Members: Other Housing: [facility] Other:: [facility] Do you presently have visiting nurse or other home services: Yes Alcohol intake: never Comment: stroke protocol Patient Tobacco Use Status: Former Tobacco user Quit Date: 01/2021 Tobacco use type: Cigarette Advance Directives: Yes Advance Directives on File: Yes Advance Directives Date on File: 04/20/21 service: Yes Current occupational status: retired Meds Allergies Allergy/AdvReac Type Severity Reaction Status Date / Time No Known Allergies Allergy Verified 10/23/22 14:09 Active Medications: Current Medications Acetaminophen (Acetaminophen 325 Mg Tablet) 650 mg PO Q6H PRN PRN Reason: Pain, Mild (Pain Scale 1-3) Furosemide (Furosemide 20 Mg/2 Ml Vial) 20 mg IVPUSH ONCE ONE; Protocol Stop: 01/27/23 09:24 Sodium Chloride (Ns) 100 mls @ 100 mls/hr IV ONCE ONE Stop: 01/27/23 10:16 Sodium Chloride (Ns) 100 mls @ 100 mls/hr IV ONCE ONE Stop: 01/27/23 10:16 Ondansetron HCl (Ondansetron Hcl 4 Mg/2 Ml Vial) 4 mg IVPUSH Q8H PRN PRN Reason: Nausea and Vomiting Pantoprazole Sodium (Pantoprazole Sodium 40 Mg/10 Ml Vial) 40 mg IVPUSH ONCE ONE Stop: 01/27/23 09:48 Sodium Chloride (0.9 % Sodium Chloride Flush 3 Ml Syringe) 3 ml IVFLUSH [facility] Home Medications Medication Instructions Recorded Confirmed Last Taken Type carboxymethylcellulose sodium 1 % 1 drp ophthalmic (eye) TID 04/11/21 01/27/23 01/26/23 History eye drops ipratropium bromide 17 2 puff inhalation QID 04/11/21 01/27/23 01/26/23 History mcg/actuation HFA aerosol inhaler lorazepam 0.5 mg tablet 0.5 mg PO BID 04/11/21 01/27/23 01/26/23 History magnesium hydroxide 400 mg/5 mL 30 ml PO BEDTIME PRN Constipation 04/11/21 01/27/23 Unknown History oral suspension methocarbamol 500 mg tablet 500 mg PO BID PRN Spasms 04/11/21 01/27/23 Unknown History ondansetron HCl 4 mg tablet 4 mg PO Q8H PRN Nausea 04/11/21 01/27/23 Unknown History amlodipine 5 mg tablet 5 mg feeding tube DAILY 07/13/21 01/27/23 01/26/23 History lorazepam 0.5 mg tablet 0.5 mg PO DAILY PRN Anxiety 07/13/21 01/27/23 Unknown History acetaminophen 160 mg/5 mL (5 mL) 640 mg PO Q8H PRN Fever Or Pain 01/27/23 01/27/23 Unknown History oral solution albuterol sulfate 90 mcg/actuation 2 puff inhalation Q4H PRN 01/27/23 01/27/23 Unknown History aerosol inhaler Shortness Of Breath Or Wheezing docusate sodium 50 mg/5 mL oral 50 mg feeding tube DAILY 01/27/23 01/27/23 01/26/23 History liquid esomeprazole magnesium 20 mg 20 mg feeding tube DAILY 01/27/23 01/27/23 01/26/23 History capsule,delayed release hyoscyamine sulfate 0.125 mg 0.125 mg sublingual Q4H PRN 01/27/23 01/27/23 Unknown History sublingual tablet increased saliva loperamide 2 mg tablet See Rx Instructions .Route 01/27/23 01/27/23 Unknown History .COMPLEX PRN Diarrhea loratadine 10 mg tablet 10 mg feeding tube DAILY 01/27/23 01/27/23 01/26/23 History polyvinyl alcohol 1.4 % eye drops 1 drp ophthalmic (eye) DAILY PRN 01/27/23 01/27/23 Unknown History Dry Eyes sennosides 8.6 mg tablet (senna) 8.6 mg feeding tube DAILY 01/27/23 01/27/23 01/26/23 History sertraline 25 mg tablet 25 mg feeding tube DAILY 01/27/23 01/27/23 01/26/23 History sodium chloride 0.65 % nasal spray 2 spray intranasal DAILY PRN dry 01/27/23 01/27/23 Unknown History aerosol sinuses Physical Exam Vital Signs and Narrative: Vital Signs: Last Vital Signs Temp 97.4 F 01/27/23 06:25 Pulse 71 01/27/23 08:00 Resp 18 01/27/23 08:00 BP 140/74 H 01/27/23 08:00 Pulse Ox 97 01/27/23 08:00 O2 Del Method Room Air 01/27/23 06:25 BMI result Body Mass Index 22.4 Const: Other: Awake alert no acute distress Resp: Other: Clear to auscultation bilaterally no rales rhonchi or wheezes Cardio: Other: No S4; positive S1-S2; no S3 murmurs rubs or gallops GI: Other: Soft nontender nondistended. Increased bowel sounds all quadrants Extrem: Other: No edema bilaterally Results Labs 01/27/23 06:27 01/27/23 06:27 Labs: Laboratory Results - last 24 hr 01/27/23 01/27/23 06:27 07:15 MCV 92.7 MCH 29.4 MCHC 31.8 RDW 16.5 H Plt Count 234 MPV 10.7 Immature Gran % (Auto) 0.9 H Neut % (Auto) 61.7 Lymph % (Auto) 18.5 L [place] % (Auto) 13.5 H Eos % (Auto) 4.1 H Baso % (Auto) 1.3 Lymph # (Auto) 1.0 L [place] # (Auto) 0.8 Eos # (Auto) 0.2 Baso # (Auto) 0.1 Abs Immat Gran (auto) 0.05 H Absolute Neuts (auto) 3.4 Absolute Nucleated RBC 0.000 Nucleated RBC % (auto) 0.0 PT 15.5 H INR 1.3 H APTT 38.4 H Anion Gap 15 Estim Creat Clear Calc 52.4 Estimated GFR > 60 Random Glucose 131 H Calcium 8.7 Total Bilirubin 0.4 AST 44 H ALT 34 Alkaline Phosphatase 120 H Total Protein 7.1 Albumin 3.5 Stool Occult Blood POSITIVE Blood Type O Positive Antibody Screen NEGATIVE Assessment and Plan (1) GI bleed: Qualifiers: GI bleed type/associated pathology: unspecified gastrointestinal hemorrhage type Qualified Code(s): K92.2 - Gastrointestinal hemorrhage, unspecified Status: Acute (2) Paroxysmal atrial fibrillation: Status: Acute (3) Hypertension: Qualifiers: Hypertension type: primary hypertension Qualified Code(s): I10 - Essential (primary) hypertension Status: Acute Plan 79-year-old male with history of paroxysmal AFib status post CVA on Eliquis hypertension and COPD presents with bright red blood per rectum x2 days. In ER, feels commode with clot. Asymptomatic hemodynamically stable 1. Lower GI bleed (on Eliquis) -will transfuse 2 units of FFP with Lasix 20 mg IV in between units -Kcentra 25 milligrams/kilogram IV x1 -abdomen/pelvis with/without IV contrast. .. GI bleed protocol -consult Dr. Chavez (GI coverage) -serial hemoglobins. .. Transfuse as indicated -NPO 2. Paroxysmal atrial fibrillation -acceptable rate control on current therapies -adjust as indicated -DC Eliquis 3. Hypertension -acceptable control on current therapies -hold all outpatient agents pending stabilization of GI bleed -add back therapies as clinically appropriate DNR/DNI Pneumatic boots Patient will require at least 2 midnights inpatient stay to treat lower GI bleed and reverse the affects of Eliquis; also will need specialist consult. This cannot be achieved a lesser acute setting Quality Stroke Does the patient have a stroke diagnosis?: No VTE Prior VTE?: No VTE Risk Level:: Medical - moderate - high VTE Device Contraindication: N/A - Device Ordered VTE Drug Contraindication: Treatment Not Indicated
--- NOTE | 2023-01-27 09:53 | PHA.MEDREC ---
Pharmacy Consult ? Medication Reconciliation Pharmacy has completed the medication reconciliation. List from [facility].
--- NOTE | 2023-01-27 10:42 | PC.NURSE ---
Provider reports to this RN at bedside that Kcentra is to be administered post complete administration of 2 units of plasma. Lasix to be administered after 1st unit of plasma administration.
--- NOTE | 2023-01-27 11:37 | PC.NURSE ---
Addendum entered by Lowell Pineda RN 01/27/23 11:41: Referencing provider: Frank Deng Original Note: Pt tolerating 100ml/hr plasma transfusion; asked provider for confirmation to increase rate to 150ml/hr. Provider confirmed dose rate increase. Plasma will infuse at 150ml/hr.
--- NOTE | 2023-01-27 12:00 | MHC.EDTECH ---
Assist patient with urinal and emptied urinal.
[2023-01-27] MEDS: Furosemide 20 MG/2 ML VIAL IVPUSH (12:19)
[2023-01-27] MEDS: Pantoprazole Sodium 40 MG/10 ML VIAL IVPUSH (12:19)
--- NOTE | 2023-01-27 12:47 | PC.NURSE ---
1:1 assist to commode.
--- NOTE | 2023-01-27 13:13 | MHC.CM.PN ---
Patient is a LTC Resident of the [facility] and returning there is the goal. CM has initiated and will follow for dc planning. HCP is on the chart and IMM was addressed with Primary Contact/Minna @ [phone].
--- NOTE | 2023-01-27 13:38 | PC.NURSE ---
Pt has had three episodes of bloody stools; two prior to plasma infusion and one post 1st unit of plasma infusion. Provider notified.
[2023-01-27 14:04] LABS: MANUAL DIFF FLAG NO
[2023-01-27 14:05] LABS: Basophils Absolute Auto 0.1 X10*3/uL (0.0-0.2); Basophils Percent Auto 0.8 % (0-2); Eosinophils Absolute Auto 0.1 X10*3/uL (0.0-0.4); Eosinophils Percent Auto 1.5 % (0-4); Hematocrit 32.5 % (42.0-52.0); Hemoglobin 10.3 g/dl (14.0-18.0); Imm Gran Abs Auto 0.06 X10*3/uL (0.00-0.03); Lymphocytes Absolute Auto 0.9 X10*3/uL (1.2-4.9); Lymphocytes Percent Auto 15.1 % (20-40); Mean Corpuscular HGB Conc 31.7 g/dl (31.0-36.0); Mean Corpuscular Hemoglobin 28.9 pg (27.0-33.0); Mean Platelet Volume 9.8 fL (9.4-12.4); Monocytes Absolute Auto 0.6 X10*3/uL (0.1-1.2); Monocytes Percent Auto 9.8 % (2-11); Neutrophils Absolute Auto 4.3 x10*3/uL (2.0-8.3); Neutrophils Percent Auto 71.8 % (45-73); Platelet Count 227 X10*3/uL (160-400); Red Blood Count 3.57 X10*6/uL (4.60-5.80); Red Cell Distribution Width 16.2 % (11.0-16.0)
[2023-01-27] MEDS: iohexoL 350 MG/ML 100 ML INFUS..BTL 85 ML IV (14:53)
[2023-01-27] MEDS: Hum Prothrombin Cplx(PCC)4Fact 1,500 UNIT in Container,Empty 0 ML 480 UNIT IV (17:54)
[2023-01-27] MEDS: 0.9 % Sodium Chloride Flush 3 ML SYRINGE IVFLUSH (17:54)
[2023-01-27 19:58] LABS: Hematocrit 28.7 % (42.0-52.0); Hemoglobin 9.2 g/dl (14.0-18.0); Mean Corpuscular HGB Conc 32.1 g/dl (31.0-36.0); Mean Corpuscular Hemoglobin 29.2 pg (27.0-33.0); Mean Corpuscular Volume 91.1 fL (80.0-98.0); Mean Platelet Volume 9.9 fL (9.4-12.4); Platelet Count 213 X10*3/uL (160-400); Red Blood Count 3.15 X10*6/uL (4.60-5.80); Red Cell Distribution Width 16.4 % (11.0-16.0); White Blood Count 6.2 X10*3/uL (4.8-10.8)
[2023-01-28] VITALS (9 sets, daily range): BP systolic 110–132; BP diastolic 65–79; PULSE 67–81; RESP 14–20; TEMP 36.4–37.5; O2SAT 96–97
[2023-01-28 07:26] LABS: Hematocrit 27.6 % (42.0-52.0); Hemoglobin 8.9 g/dl (14.0-18.0); Mean Corpuscular HGB Conc 32.2 g/dl (31.0-36.0); Mean Corpuscular Hemoglobin 29.7 pg (27.0-33.0); Mean Platelet Volume 10.6 fL (9.4-12.4); Platelet Count 208 X10*3/uL (160-400); Red Cell Distribution Width 16.5 % (11.0-16.0); White Blood Count 6.6 X10*3/uL (4.8-10.8)
--- NOTE | 2023-01-28 10:21 | PC.NURSE ---
assumed care of this pt after plasma transfusion started. pt denies sob/throat tightness/headache/dizziness. pt tolerating transfusion well. vss. will continue to observe.
--- NOTE | 2023-01-28 12:00 | MHC.EDTECH ---
Assisted patient from recliner to bed. Assisted patient with urinal and personal hygiene.
--- NOTE | 2023-01-28 12:18 | PC.NURSE ---
first bag of plasma transfusion ended. pt tolerated well. vss. no complaints at this time. pt's friend is at his bedside
[2023-01-28 13:00] LABS: MANUAL DIFF FLAG NO
[2023-01-28 13:02] LABS: Basophils Percent Auto 0.5 % (0-2); Hematocrit 26.1 % (42.0-52.0); Hemoglobin 8.5 g/dl (14.0-18.0); Imm Gran Abs Auto 0.05 X10*3/uL (0.00-0.03); Imm Gran Pct Auto 0.8 % (0.0-0.4); Lymphocytes Absolute Auto 0.7 X10*3/uL (1.2-4.9); Lymphocytes Percent Auto 10.8 % (20-40); Mean Corpuscular HGB Conc 32.6 g/dl (31.0-36.0); Mean Corpuscular Hemoglobin 29.7 pg (27.0-33.0); Mean Corpuscular Volume 91.3 fL (80.0-98.0); Mean Platelet Volume 9.7 fL (9.4-12.4); Monocytes Absolute Auto 0.5 X10*3/uL (0.1-1.2); Monocytes Percent Auto 7.1 % (2-11); Neutrophils Absolute Auto 5.3 x10*3/uL (2.0-8.3); Neutrophils Percent Auto 80.8 % (45-73); Platelet Count 198 X10*3/uL (160-400); Red Blood Count 2.86 X10*6/uL (4.60-5.80); Red Cell Distribution Width 16.7 % (11.0-16.0); White Blood Count 6.6 X10*3/uL (4.8-10.8)
[2023-01-28] MEDS: Furosemide 20 MG/2 ML VIAL IVPUSH (13:21)
--- NOTE | 2023-01-28 13:47 | PC.NURSE ---
pt's bedside suction not working pt reports increased saliva production and sob, suction canister reconnected and working, pt independent in using suction. pt medicated per MAR. requesting condom cath for urination vs brief.
--- NOTE | 2023-01-28 14:38 | PC.NURSE ---
second bag of plasma verified by 2 rns and infusion started. vss. denies pain. will remain at pt's bedside.
--- NOTE | 2023-01-28 14:42 | HO.PM.IMPN ---
Subjective Subjective Date of Service: 01/28/23 Interval History: Continues to have bloody stools albeit less frequent. Remains hemodynamically stable Review of Systems Denies chest pain Denies shortness of breath Denies nausea vomiting diarrhea Denies fever chills Physical Exam Vital Signs: Vital Signs: Last Vital Signs Temp 97.9 F 01/28/23 14:35 Pulse 81 01/28/23 14:35 Resp 18 01/28/23 14:35 BP 129/79 01/28/23 14:35 Pulse Ox 96 01/28/23 06:00 O2 Del Method Room Air 01/28/23 06:00 BMI result Body Mass Index 22.4 Const: Other: Awake alert no acute distress Resp: Other: Clear to auscultation bilaterally no rales rhonchi or wheezes Cardio: Other: No S4; positive S1-S2; no S3 murmurs rubs or gallops GI: Other: Soft nontender nondistended. Increased bowel sounds all quadrants Extrem: Other: No edema bilaterally Objective Data Active Medications Acetaminophen (Acetaminophen 325 Mg Tablet) 650 mg PO Q6H PRN PRN Reason: Pain, Mild (Pain Scale 1-3) Ondansetron HCl (Ondansetron Hcl 4 Mg/2 Ml Vial) 4 mg IVPUSH Q8H PRN PRN Reason: Nausea and Vomiting Sodium Chloride (0.9 % Sodium Chloride Flush 3 Ml Syringe) 3 ml IVFLUSH QSHIFT [facility] Last Admin: 01/28/23 11:56 Dose: Not Given Documented By: EDWARD Non-Admin Reason: IV Running Labs 01/28/23 12:56 01/27/23 06:27 Labs: Laboratory Results - last 24 hr 01/27/23 01/27/23 01/28/23 07:15 19:47 06:57 MCV 91.1 92.0 MCH 29.2 29.7 MCHC 32.1 32.2 RDW 16.4 H 16.5 H Plt Count 213 208 MPV 9.9 10.6 Immature Gran % (Auto) Neut % (Auto) Lymph % (Auto) [place] % (Auto) Eos % (Auto) Baso % (Auto) Lymph # (Auto) [place] # (Auto) Eos # (Auto) Baso # (Auto) Abs Immat Gran (auto) Absolute Neuts (auto) Absolute Nucleated RBC 0.000 0.000 Nucleated RBC % (auto) 0.0 0.0 Blood Type O Positive Antibody Screen NEGATIVE 01/28/23 12:56 MCV 91.3 MCH 29.7 MCHC 32.6 RDW 16.7 H Plt Count 198 MPV 9.7 Immature Gran % (Auto) 0.8 H Neut % (Auto) 80.8 H Lymph % (Auto) 10.8 L [place] % (Auto) 7.1 Eos % (Auto) 0.0 Baso % (Auto) 0.5 Lymph # (Auto) 0.7 L [place] # (Auto) 0.5 Eos # (Auto) 0.0 Baso # (Auto) 0.0 Abs Immat Gran (auto) 0.05 H Absolute Neuts (auto) 5.3 Absolute Nucleated RBC 0.000 Nucleated RBC % (auto) 0.0 Blood Type Antibody Screen Assessment and Plan (1) GI bleed: Status: Acute Plan 79-year-old male with history of paroxysmal AFib status post CVA on Eliquis hypertension and COPD presents with bright red blood per rectum x2 days. Continues with loose stools; frequency decreasing. Long conversation with Jeffy Mcmahon proxy.(01/27/23). Only option would be to transfer to tertiary care center for embolization. Patient is resistant to that idea and Ms. Mcmahon agrees. All are in agreement conservative management as best. Hemodynamically stable overnight; hemoglobin stable 1. Lower GI bleed (on Eliquis) -will transfuse 2 additional units of FFP with Lasix 20 mg IV in between units -serial hemoglobins. .. Transfuse as indicated -NPO 2. Paroxysmal atrial fibrillation -acceptable rate control on current therapies -adjust as indicated -DC Eliquis 3. Hypertension -acceptable control on current therapies -hold all outpatient agents pending stabilization of GI bleed -add back therapies as clinically appropriate DNR/DNI Pneumatic boots Patient will require at least 2 midnights inpatient stay to treat lower GI bleed and reverse the affects of Eliquis; also will need specialist consult. This cannot be achieved a lesser acute setting Quality Stroke Does the patient have a stroke diagnosis?: No VTE Prior VTE?: No VTE Risk Level:: Medical - moderate - high VTE Device Contraindication: N/A - Device Ordered VTE Drug Contraindication: Treatment Not Indicated
--- NOTE | 2023-01-28 15:06 | PC.NURSE ---
pt tolerating plasma transfusion. denies sob/chest tightness/throat swelling/headache/dizziness. vss. denies pain
[2023-01-28 17:43] LABS: MANUAL DIFF FLAG NO
[2023-01-28 18:00] LABS: Basophils Percent Auto 0.5 % (0-2); Eosinophils Percent Auto 0.2 % (0-4); Hematocrit 25.9 % (42.0-52.0); Hemoglobin 8.3 g/dl (14.0-18.0); Imm Gran Abs Auto 0.02 X10*3/uL (0.00-0.03); Imm Gran Pct Auto 0.3 % (0.0-0.4); Lymphocytes Absolute Auto 0.9 X10*3/uL (1.2-4.9); Lymphocytes Percent Auto 13.4 % (20-40); Mean Corpuscular Hemoglobin 29.1 pg (27.0-33.0); Mean Corpuscular Volume 90.9 fL (80.0-98.0); Mean Platelet Volume 10.3 fL (9.4-12.4); Monocytes Absolute Auto 0.6 X10*3/uL (0.1-1.2); Monocytes Percent Auto 9.5 % (2-11); Neutrophils Absolute Auto 4.8 x10*3/uL (2.0-8.3); Neutrophils Percent Auto 76.1 % (45-73); Platelet Count 191 X10*3/uL (160-400); Red Blood Count 2.85 X10*6/uL (4.60-5.80); Red Cell Distribution Width 16.7 % (11.0-16.0); White Blood Count 6.3 X10*3/uL (4.8-10.8)
--- NOTE | 2023-01-28 19:34 | PC.NURSE ---
This nurse assumed care of pt. around 15:30. Pt is lying in hospital bed, alert and oriented, and pleasant. Denies pain on arrival, FFP unit #2 running via space pump per order. Completed transfusion without issue, 16:32pm. Resting comfortably at current. Denies any other needs at this time, will continue to monitor for changes. Call case within reach.
--- NOTE | 2023-01-28 23:21 | MHC.EDTECH ---
This tech resumed care for this patient @2300. Patient is awake and watching T.v, stated his mouth is dry, this tech re-informed him that we aren't able to give him anything at this time. Voice his concerned to the Nurse. - RN Aware
[2023-01-28] MEDS: LORazepam 0.5 MG TABLET PO (23:37)
--- NOTE | 2023-01-28 23:49 | PC.NURSE ---
Spoke with Hospialist who stated we will hold pt's night time meds. Pt given ativan by g-tube to help him relax. Pt requested some water. Pt was cleaned and repositioned, now resting comfortably in bed.
[2023-01-29] VITALS (7 sets, daily range): BP systolic 115–140; BP diastolic 74–78; PULSE 66–82; RESP 16–24; TEMP 36.6–37; O2SAT 96–98
[2023-01-29] MEDS: 0.9 % Sodium Chloride Flush 3 ML SYRINGE IVFLUSH ×4 (00:08→19:33)
[2023-01-29 06:27] LABS: Alanine Aminotransferase 28 U/L (0-40); Albumin Level 3.8 g/dL (3.5-5.0); Alkaline Phosphatase 100 U/L (39-117); Anion Gap 17 (12-20); Aspartate Amino Transferase 37 U/L (5-37); Bilirubin Total 0.8 mg/dL (0.0-1.0); Blood Urea Nitrogen 39 mg/dL (9-16); Calcium 9.1 mg/dL (8.4-10.2); Carbon Dioxide 24 mmol/L (22-29); Chloride 107 mmol/L (96-108); Creatinine Clr Calc Pharmacy 52.4; Estimated Glomerular Filt Rate > 60; Glucose Fasting 112 mg/dL (60-99); Potassium 3.6 mmol/L (3.3-5.1); Sodium 144 mmol/L (135-145); Total Protein 7.2 g/dL (6.5-8.0)
--- NOTE | 2023-01-29 08:41 | PC.NURSE ---
Assisted patient to commode. Small dark stool. Dr. Deng had texted regarding whether there was any bloody stool overnight. Informed him of morning stool, none reported overnight per night RN. Stool kept at bedside to show MD if needed. Continue to monitor for additional stool and bloodwork.
[2023-01-29] MEDS: Loratadine 10 MG TABLET G-TUBE (09:49)
[2023-01-29] MEDS: amLODIPine Besylate 5 MG TABLET G-TUBE (09:49)
[2023-01-29] MEDS: Sertraline HCL 25 MG TABLET G-TUBE (09:49)
[2023-01-29 10:30] LABS: MANUAL DIFF FLAG NO
[2023-01-29 10:36] LABS: Basophils Percent Auto 0.7 % (0-2); Eosinophils Absolute Auto 0.1 X10*3/uL (0.0-0.4); Eosinophils Percent Auto 1.1 % (0-4); Hematocrit 26.6 % (42.0-52.0); Hemoglobin 8.5 g/dl (14.0-18.0); Imm Gran Abs Auto 0.06 X10*3/uL (0.00-0.03); Lymphocytes Absolute Auto 0.7 X10*3/uL (1.2-4.9); Lymphocytes Percent Auto 10.6 % (20-40); Mean Corpuscular Hemoglobin 29.4 pg (27.0-33.0); Mean Platelet Volume 9.8 fL (9.4-12.4); Monocytes Absolute Auto 0.5 X10*3/uL (0.1-1.2); Monocytes Percent Auto 8.8 % (2-11); Neutrophils Absolute Auto 4.8 x10*3/uL (2.0-8.3); Neutrophils Percent Auto 77.8 % (45-73); Platelet Count 189 X10*3/uL (160-400); Red Blood Count 2.89 X10*6/uL (4.60-5.80); Red Cell Distribution Width 16.4 % (11.0-16.0); White Blood Count 6.1 X10*3/uL (4.8-10.8)
--- NOTE | 2023-01-29 11:51 | PC.NURSE ---
Jeffy Haney, health care proxy called to check in - [phone], message can be left on this phone. Does not use [phone] (home phone). Updated about plan of care. Dr Deng came to unit & updated orders & reviewed most recent labs (H&H stable). No bleeding noted since assuming care at approx 9am. Vitals stable, took meds via G-tube. Plan to restart tube feed per Dr Deng.
[2023-01-29] MEDS: LORazepam 0.5 MG TABLET PO (12:46)
[2023-01-29] MEDS: Ipratropium Bromide 1 PUFF/17 MCG INHALER 2 PUFF INHALE ×2 (14:27→20:02)
--- NOTE | 2023-01-29 16:57 | P.PNIM_ITS ---
Subjective Subjective Date of Service: 01/29/23 Interval History: Stool frequency decreasing. Remains hemodynamically stable Review of Systems Denies chest pain Denies shortness of breath Denies nausea vomiting diarrhea Denies fever chills Physical Exam 2 Vital Signs: Vital Signs: Last Vital Signs Temp 97.8 F 01/29/23 15:35 Pulse 82 01/29/23 15:35 Resp 17 01/29/23 15:35 BP 140/78 H 01/29/23 15:35 Pulse Ox 96 01/29/23 15:35 O2 Del Method Room Air 01/29/23 15:35 BMI result Body Mass Index 22.4 Const: Other: Awake alert no acute distress Resp: Other: Clear to auscultation bilaterally no rales rhonchi or wheezes Cardio: Other: No S4; positive S1-S2; no S3 murmurs rubs or gallops GI: Other: Soft nontender nondistended. Increased bowel sounds all quadrants Extrem: Other: No edema bilaterally Objective Data Active Medications Acetaminophen (Acetaminophen 325 Mg Tablet) 650 mg PO Q6H PRN PRN Reason: Pain, Mild (Pain Scale 1-3) Albuterol Sulfate (Albuterol Sulfate 90 Mcg 8 Gm Inhaler) 2 puff INHALE Q4H PRN PRN Reason: Shortness Of Breath Or Wheezing Amlodipine Besylate (Amlodipine Besylate 5 Mg Tablet) 5 mg G-TUBE DAILY [facility]; Protocol Last Admin: 01/29/23 09:49 Dose: 5 mg Documented By: SANTY Atorvastatin Calcium (Atorvastatin Calcium 40 Mg Tablet) 40 mg G-TUBE BEDTIME [facility] Ipratropium [place] (Ipratropium [place] 1 Puff/17 Mcg Inhaler) 2 puff INHALE RQID [facility] Last Admin: 01/29/23 14:27 Dose: 2 puff Documented By: MIRIAM Loratadine (Loratadine 10 Mg Tablet) 10 mg G-TUBE DAILY [facility] Last Admin: 01/29/23 09:49 Dose: 10 mg Documented By: SANTY Lorazepam (Lorazepam 0.5 Mg Tablet) 0.5 mg PO DAILY PRN PRN Reason: Anxiety Last Admin: 01/29/23 12:46 Dose: 0.5 mg Documented By: JARRELL Ondansetron HCl (Ondansetron Hcl 4 Mg/2 Ml Vial) 4 mg IVPUSH Q8H PRN PRN Reason: Nausea and Vomiting Sertraline HCl (Sertraline Hcl 25 Mg Tablet) 25 mg G-TUBE DAILY [facility] Last Admin: 01/29/23 09:49 Dose: 25 mg Documented By: SANTY Sodium Chloride (0.9 % Sodium Chloride Flush 3 Ml Syringe) 3 ml IVFLUSH QSHIFT [facility] Last Admin: 01/29/23 14:26 Dose: 3 ml Documented By: ALFRED Sodium Chloride (Sodium Chloride 0.65 % Nasal 44 Ml Sprbtl) 2 spray NOSTRIL-B DAILY PRN PRN Reason: dry sinuses Labs 01/29/23 10:22 01/29/23 05:47 Labs: Laboratory Results - last 24 hr 01/28/23 01/29/23 01/29/23 17:38 05:47 10:22 MCV 90.9 92.0 MCH 29.1 29.4 MCHC 32.0 32.0 RDW 16.7 H 16.4 H Plt Count 191 189 MPV 10.3 9.8 Immature Gran % (Auto) 0.3 1.0 H Neut % (Auto) 76.1 H 77.8 H Lymph % (Auto) 13.4 L 10.6 L [place] % (Auto) 9.5 8.8 Eos % (Auto) 0.2 1.1 Baso % (Auto) 0.5 0.7 Lymph # (Auto) 0.9 L 0.7 L [place] # (Auto) 0.6 0.5 Eos # (Auto) 0.0 0.1 Baso # (Auto) 0.0 0.0 Abs Immat Gran (auto) 0.02 0.06 H Absolute Neuts (auto) 4.8 4.8 Absolute Nucleated RBC 0.000 0.000 Nucleated RBC % (auto) 0.0 0.0 Anion Gap 17 Estim Creat Clear Calc 52.4 Estimated GFR > 60 Fasting Glucose 112 H Calcium 9.1 Total Bilirubin 0.8 AST 37 ALT 28 Alkaline Phosphatase 100 Total Protein 7.2 Albumin 3.8 Assessment and Plan (1) GI bleed: Status: Acute (2) Paroxysmal atrial fibrillation: Status: Acute (3) Hypertension: Status: Acute Plan 79-year-old male with history of paroxysmal AFib status post CVA on Eliquis hypertension and COPD presents with bright red blood per rectum x2 days. Continues with loose stools; frequency decreasing. Long conversation with Jeffy Mcmahon proxy.(01/27/23). Only option would be to transfer to tertiary care center for embolization. Patient is resistant to that idea and Ms. Mcmahon agrees. All are in agreement conservative management as best. Hemodynamically stable overnight; hemoglobin stable 1. Lower GI bleed (on Eliquis) -will transfuse 2 additional units of FFP with Lasix 20 mg IV in between units -serial hemoglobins. .. Transfuse as indicated -restart feeds in am 2. Paroxysmal atrial fibrillation -acceptable rate control on current therapies -adjust as indicated -DC Eliquis 3. Hypertension -acceptable control on current therapies -hold all outpatient agents pending stabilization of GI bleed -add back therapies as clinically appropriate DNR/DNI Pneumatic boots Patient will require ongoing hospitalization for reverse old Eliquis with fresh frozen plasma and close monitoring of blood count Quality Stroke Does the patient have a stroke diagnosis?: No VTE Prior VTE?: No VTE Risk Level:: Medical - moderate - high VTE Device Contraindication: N/A - Device Ordered VTE Drug Contraindication: Treatment Not Indicated
[2023-01-29 17:20] LABS: MANUAL DIFF FLAG NO
[2023-01-29 17:38] LABS: Basophils Absolute Auto 0.1 X10*3/uL (0.0-0.2); Basophils Percent Auto 0.7 % (0-2); Eosinophils Percent Auto 0.3 % (0-4); Hematocrit 26.2 % (42.0-52.0); Hemoglobin 8.4 g/dl (14.0-18.0); Imm Gran Abs Auto 0.04 X10*3/uL (0.00-0.03); Imm Gran Pct Auto 0.6 % (0.0-0.4); Lymphocytes Absolute Auto 0.8 X10*3/uL (1.2-4.9); Lymphocytes Percent Auto 11.2 % (20-40); Mean Corpuscular HGB Conc 32.1 g/dl (31.0-36.0); Mean Corpuscular Hemoglobin 29.4 pg (27.0-33.0); Mean Corpuscular Volume 91.6 fL (80.0-98.0); Mean Platelet Volume 10.6 fL (9.4-12.4); Monocytes Absolute Auto 0.6 X10*3/uL (0.1-1.2); Monocytes Percent Auto 9.1 % (2-11); Neutrophils Absolute Auto 5.4 x10*3/uL (2.0-8.3); Neutrophils Percent Auto 78.1 % (45-73); Platelet Count 205 X10*3/uL (160-400); Red Blood Count 2.86 X10*6/uL (4.60-5.80); Red Cell Distribution Width 16.6 % (11.0-16.0)
[2023-01-29] MEDS: Atorvastatin Calcium 40 MG TABLET G-TUBE (19:33)
[2023-01-30] MEDS: Acetaminophen 325 MG TABLET 650 MG PO (01:25)
[2023-01-30 03:57] VITALS: BP 132/80; PULSE 79; RESP 18; TEMP 36.8; O2SAT 96
--- NOTE | 2023-01-30 05:40 | PC.NURSE ---
Pt seen on bed alert and oriented x3, very forgetfull, attended to all his calls and needs but always forgets whenever he wakes up and thinks he is being ignored, he calls all the time and unable to verbalized specific need then get upset to staffs. Pt verbalized difficulty expectorating sputum, yankuer suction done with minimal clear sputum, encouraged to deep breathe and cough. Gtube feed tolerated and water flush tolerated.
[2023-01-30] MEDS: Albuterol Sulfate 90 MCG 8 GM INHALER 2 PUFF INHALE (05:44)
[2023-01-30 05:58] LABS: Alanine Aminotransferase 26 U/L (0-40); Albumin Level 3.9 g/dL (3.5-5.0); Alkaline Phosphatase 100 U/L (39-117); Anion Gap 14 (12-20); Aspartate Amino Transferase 37 U/L (5-37); Bilirubin Total 0.7 mg/dL (0.0-1.0); Blood Urea Nitrogen 47 mg/dL (9-16); Calcium 9.3 mg/dL (8.4-10.2); Carbon Dioxide 26 mmol/L (22-29); Chloride 108 mmol/L (96-108); Creatinine Clr Calc Pharmacy 49.2; Estimated Glomerular Filt Rate > 60; Glucose Fasting 128 mg/dL (60-99); Potassium 3.5 mmol/L (3.3-5.1); Sodium 144 mmol/L (135-145)
[2023-01-30 07:39] VITALS: BP 143/80; PULSE 78; RESP 18; TEMP 36.1; O2SAT 96
[2023-01-30] MEDS: Ipratropium Bromide 1 PUFF/17 MCG INHALER 2 PUFF INHALE ×2 (07:49→11:58)
[2023-01-30 07:52] VITALS: PULSE 78; RESP 18; O2SAT 97
[2023-01-30] MEDS: amLODIPine Besylate 5 MG TABLET G-TUBE (09:50)
[2023-01-30] MEDS: Sertraline HCL 25 MG TABLET G-TUBE (09:50)
[2023-01-30] MEDS: Loratadine 10 MG TABLET G-TUBE (09:50)
[2023-01-30] MEDS: 0.9 % Sodium Chloride Flush 3 ML SYRINGE IVFLUSH (09:50)
[2023-01-30 10:33] LABS: MANUAL DIFF FLAG NO
[2023-01-30 10:36] LABS: Basophils Percent Auto 0.4 % (0-2); Eosinophils Percent Auto 0.6 % (0-4); Hematocrit 27.5 % (42.0-52.0); Hemoglobin 8.7 g/dl (14.0-18.0); Imm Gran Abs Auto 0.07 X10*3/uL (0.00-0.03); Lymphocytes Absolute Auto 0.8 X10*3/uL (1.2-4.9); Lymphocytes Percent Auto 11.8 % (20-40); Mean Corpuscular HGB Conc 31.6 g/dl (31.0-36.0); Mean Corpuscular Hemoglobin 29.1 pg (27.0-33.0); Mean Platelet Volume 9.8 fL (9.4-12.4); Monocytes Absolute Auto 0.6 X10*3/uL (0.1-1.2); Monocytes Percent Auto 9.4 % (2-11); Neutrophils Absolute Auto 5.1 x10*3/uL (2.0-8.3); Neutrophils Percent Auto 76.8 % (45-73); Platelet Count 176 X10*3/uL (160-400); Red Blood Count 2.99 X10*6/uL (4.60-5.80); Red Cell Distribution Width 16.6 % (11.0-16.0); White Blood Count 6.7 X10*3/uL (4.8-10.8)
[2023-01-30 11:32] VITALS: BMI 22.4
--- NOTE | 2023-01-30 11:35 | MHC.CLN ---
PT DEPENDENT ON TF FOR NUTRITION SUPPORT PT CURRENTLY RECEIVING TRICKLE FEED GLUCERNA AT 20ML/HR RECOMMEND ADVANCING TF TO MAX GOAL RATE GLUCERNA AT 85ML/HR WITH 120ML FREE WATER FLUSHES Q 8 HRS TO PROVIDE 2040KCALS (30.5KCALS/KG), 85G PROTEIN (1.3G/KG), 2100ML TOTAL WATER FROM FORMULA AND FLUSHES (31ML/KG) MONITOR TOLERANCE, RESIDUALS AND LYTES SEE ALSO FULL CLINICAL NUTRITION ASSESSMENT
[2023-01-30 11:59] VITALS: PULSE 60; RESP 18; O2SAT 98
--- NOTE | 2023-01-30 13:24 | MHC.CM.PN ---
Addendum entered by Berenice Lauren RN 01/30/23 13:25: SPOKE WITH KRISTINA ABDI AT FACILITY WHO IS ALSO AWARE OF DC AND RETURN TIME. Original Note: PER MD MEDICALLY CLEARED FOR DC. PLAN TO RETURN TO [facility] VIA BLS TRANSPORT AT 4PM. MD KRISTINA, PATIENT AND HCP AWARE. IMM VERBALLY DELIVERED VIA TELEPHONE. COPY LEFT WITH PATIENT PER REQUEST.
--- NOTE | 2023-01-30 13:33 | P.DS_ITS ---
DS: Providers Provider Date of Service: 01/30/23 Date of admission: 01/27/23 09:47 Date of discharge: 01/30/23 Primary care physician: Unknown Physician DS: Diagnosis Discharge Diagnosis (1) GI bleed: Status: Acute (2) Paroxysmal atrial fibrillation: Status: Acute (3) Hypertension: Status: Acute DS: Summary Hospital Course Hospital Course: 87-year-old male with past medical history significant for paroxysmal atrial fibrillation on Eliquis, CVA with dysphagia requiring G-tube insertion, hypertension press with approximately 2 days of bright red blood per rectum. Per patient in the days prior to his bleeding, stool was soft/normal and brown. Patent noted small amounts of blood 2 days ago but this a.m. staff noted he was filling the commode with blood. In the emergency room initial hemoglobin was stable at 10 despite 1 large BM mostly clots. Given 2 units of FFP in the ER and admitted. Hospital Course Patient was admitted to the floor and serial CBCs were obtained. During his hospitalization patient received 4 units of FFP; at no time did he require additional transfusions of packed red cells. Over time the stools frequency decreased; in the 24 hours prior to discharge feedings were restarted at 20 cc an hour and no further bowel movements/bloody bowel movements were had. At this point in time, patient is medically acceptable for discharge back to [facility]. Time Attestation Discharge coordination time: Greater than 30 minutes Quality: Safe Use of Opioids Does Pt have an Active Cancer Diagnosis on the Problem List?: No Quality: Stroke Does the patient have a stroke diagnosis?: No Physical Exam Vital Signs: Vital Signs: Last Vital Signs Temp 97.0 F 01/30/23 07:39 Pulse 60 01/30/23 11:59 Resp 18 01/30/23 11:59 BP 143/80 H 01/30/23 07:39 Pulse Ox 96 01/30/23 07:39 O2 Del Method Room Air 01/30/23 07:39 BMI result Body Mass Index 22.4 Const: Other: Awake alert no acute distress Resp: Other: Clear to auscultation bilaterally no rales rhonchi or wheezes Cardio: Other: No S4; positive S1-S2; no S3 murmurs rubs or gallops GI: Other: Soft nontender nondistended. Increased bowel sounds all quadrants Extrem: Other: No edema bilaterally DS: Data Data Completed and Pending Completed studies during hospitalization [Text1]: Procedures Drainage of Peritoneal Cavity, Percutaneous Endoscopic Approach (07/13/21) Insertion of Feeding Device into Stomach, Percutaneous Endoscopic Approach (04/11/21) Insertion of Feeding Device into Stomach, Via Natural or Artificial Opening Endoscopic (07/13/21) Introduction of Other Thrombolytic into Peripheral Vein, Percutaneous Approach (04/11/21) Removal of Feeding Device from Stomach, Percutaneous Endoscopic Approach (07/13/21) Labs on day of discharge: Laboratory Results - last 24 hr 01/29/23 01/30/23 01/30/23 17:17 05:15 10:28 WBC 7.0 6.7 RBC 2.86 L 2.99 L Hgb 8.4 L 8.7 L Hct 26.2 L 27.5 L MCV 91.6 92.0 MCH 29.4 29.1 MCHC 32.1 31.6 RDW 16.6 H 16.6 H Plt Count 205 176 MPV 10.6 9.8 Immature Gran % (Auto) 0.6 H 1.0 H Neut % (Auto) 78.1 H 76.8 H Lymph % (Auto) 11.2 L 11.8 L Pershing % (Auto) 9.1 9.4 Eos % (Auto) 0.3 0.6 Baso % (Auto) 0.7 0.4 Lymph # (Auto) 0.8 L 0.8 L Pershing # (Auto) 0.6 0.6 Eos # (Auto) 0.0 0.0 Baso # (Auto) 0.1 0.0 Abs Immat Gran (auto) 0.04 H 0.07 H Absolute Neuts (auto) 5.4 5.1 Absolute Nucleated RBC 0.000 0.000 Nucleated RBC % (auto) 0.0 0.0 Hold Purple Top SEE NOTE Sodium 144 Potassium 3.5 Chloride 108 Carbon Dioxide 26 Anion Gap 14 BUN 47 H Creatinine 0.98 Estim Creat Clear Calc 49.2 Estimated GFR > 60 Fasting Glucose 128 H Calcium 9.3 Total Bilirubin 0.7 AST 37 ALT 26 Alkaline Phosphatase 100 Total Protein 7.0 Albumin 3.9 Discharge Plan Discharge Anticipated Discharge Date/Time: 01/30/23 13:28 Patient Disposition: Xfer LTC Discharge Diagnosis: Lower GI Bleed Referrals: [facility] [Other] - 1 Day (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) Physician,Unknown J [Primary Care Provider] - 1 Week Discharge Medications: Continued methocarbamol 500 mg Tablet 500 mg PO BID PRN (Reason: Spasms) ondansetron HCl 4 mg Tablet 4 mg PO Q8H PRN (Reason: Nausea) lorazepam 0.5 mg Tablet 0.5 mg PO BID magnesium hydroxide 400 mg/5 mL Suspension 30 ml PO BEDTIME PRN (Reason: Constipation) ipratropium bromide 17 mcg/actuation Hfa Aerosol Inhaler 2 puff INHALATION QID carboxymethylcellulose sodium 1 % Drops 1 drp OPHTHALMIC (EYE) TID atorvastatin 40 mg Tablet 40 mg G-tube BEDTIME Qty: 30 0RF aspirin 81 mg Tablet,Chewable 81 mg G-tube DAILY Qty: 30 0RF lorazepam 0.5 mg Tablet 0.5 mg PO DAILY PRN (Reason: Anxiety) amlodipine 5 mg tablet 5 mg feeding tube DAILY Protocol: Hold for SBP< HOLD for SBP < : 90 docusate sodium 50 mg/5 mL Liquid 50 mg feeding tube DAILY sennosides [senna] 8.6 mg Tablet 8.6 mg feeding tube DAILY polyvinyl alcohol 1.4 % Drops 1 drp OPHTHALMIC (EYE) DAILY PRN (Reason: Dry Eyes) Rx Instructions: 1 drop to both eyes loperamide 2 mg Tablet See Rx Instructions .ROUTE .COMPLEX PRN (Reason: Diarrhea) Rx Instructions: 4mg initial dose at onset of diarrhea; 2 mg per feeding tube QID as needed for diarrhea after initial 4mg dose; MAX 4 TABS/24 HRS hyoscyamine sulfate 0.125 mg Tablet, Sublingual 0.125 mg SUBLINGUAL Q4H PRN (Reason: increased saliva) sertraline 25 mg Tablet 25 mg feeding tube DAILY albuterol sulfate 90 mcg/actuation Hfa Aerosol Inhaler 2 puff INHALATION Q4H PRN (Reason: Shortness Of Breath Or Wheezing) loratadine 10 mg Tablet 10 mg feeding tube DAILY esomeprazole magnesium 20 mg Capsule,Delayed Release(Dr/Ec) 20 mg feeding tube DAILY sodium chloride 0.65 % Aerosol,Moore 2 spray INTRANASAL DAILY PRN (Reason: dry sinuses) Rx Instructions: 2 sprays per nostril acetaminophen 160 mg/5 mL (5 mL) Solution 640 mg PO Q8H PRN (Reason: Fever Or Pain) Rx Instructions: NTE 3 G/24 HRS Discontinued Eliquis 2.5 mg Tablet 2.5 mg G-tube BID Qty: 60 0RF Discharge Orders: Discharge Order (Routine); Ordered 01/30/23 Ordered By: Frank Deng Diet: tube feeds Activity on Discharge: As tolerated Stand Alone Forms: Patient Portal Discharge page Care Plan Goals: Lorri VALLE it. Appears risk far greater than benefit. Defer to receiving physician Health Concerns: Resume all medicines as taken pre-hospital save Eliquis. Tube feeds were started 24 hours prior to discharge and can be advanced as per receiving facility. Thus far tolerated well Plan of Treatment: As per receiving facility Assessment: See discharge summary
[2023-01-30 15:50] VITALS: BP 129/74; PULSE 80; RESP 20; TEMP 36.6; O2SAT 97
--- NOTE | 2023-02-14 14:30 | P.CDIM_ITS ---
PROVIDER RESPONSE TEXT: To clarify, the appropriate diagnosis supported by the clinical indicators: Hemorrhagic disorder (GI bleed) due to/2nd to anticoagulant (Eliquis) QUERY TEXT: PHYSICIAN'S DOCUMENTATION REQUEST Date of Query: 01/31/2023 12:04 PM EST Patient Name: Missael Emerson Admit Date: 01/27/2023 Dear Frank Deng, A review of the medical record indicates additional documentation may be needed. Please review below and update the documentation accordingly. Clinical Indicators: Lower GI bleed (on Eliquis) Will transfuse 2 additional units of FFP with lasix 20 mg IV in between units. Serial hemoglobins - Transfuse as indicated Restart feeds in am ED: patient presents with rectal bleed, commode with blood 4 units FFP transfused H/H 8.7/25.9 Based on the above, could you clarify which of the following is the most likely diagnosis that correl ates with the GI bleed: Hemorrhagic disorder (GI bleed) due to/2nd to anticoagulant (Eliquis) Acute blood loss anemia Other etiology of the lower GI bleed please specify Other (explain) Clinically unable to determine (explain) Thank you, Mariam Galindo, CCS, CDIS Use of terms such as suspected, likely, concern for, or probable (associated with a specific diagnosi s that is being evaluated, monitored, or treated as if it exists) are acceptable and can be coded in the inpatient se tting, when documented at the time of discharge. Please use your independent medical judgment in providing your response. THIS QUERY IS PART OF THE PERMANENT MEDICAL RECORD
--- NOTE | 2023-02-14 14:30 | P.CDIM_ITS ---
PROVIDER RESPONSE TEXT: To clarify, the appropriate diagnosis supported by the clinical indicators: Hemorrhagic disorder (GI bleed) due to/2nd to anticoagulant (Eliquis): Probable QUERY TEXT: PHYSICIAN'S DOCUMENTATION REQUEST Date of Query: 01/30/2023 08:16 AM EST Patient Name: Missael Emerson Admit Date: 01/27/2023 Dear Frank Deng, A review of the medical record indicates additional documentation may be needed. Please review below and update the documentation accordingly. Clinical Indicators: Lower GI bleed (on Eliquis) will transfuse 2 additional units of FFP with lasix 20 mg IV in between units. serial hemoglobins...Transfuse as indicated restart feeds in am ED: patient presented with rectal bleed, commode with blood. 4 units FFP transfused. Based on the above, Hemorrhagic disorder (GI bleed) due to/2nd to anticoagulant (Eliquis) suspected, probable, possible etc. Other Other (explain) Clinically unable to determine (explain) Thank you, Mariam Galindo, CCS, CDIS Use of terms such as suspected, likely, concern for, or probable (associated with a specific diagnosi s that is being evaluated, monitored, or treated as if it exists) are acceptable and can be coded in the inpatient se tting, when documented at the time of discharge. Please use your independent medical judgment in providing your response. THIS QUERY IS PART OF THE PERMANENT MEDICAL RECORD
== END 2023-01-30 17:09 | DRG 813 ==
LOC: HO.ED 09:01 → HO.EDOVER 01-28 01:14 → HO.S3 01-29 13:41
PROVIDERS: Student in an Organized Health Care Education/Training Program; Admitting Provider Hospitalist; Emergency Provider Emergency Medicine; PCP Family Medicine; Visit Provider Hospitalist
DX: D68.32 Hemorrhagic disorder due to extrinsic circulating anticoagulants (principal); K62.5 Hemorrhage of anus and rectum; T45.515A Adverse effect of anticoagulants, initial encounter; J44.9 Chronic obstructive pulmonary disease, unspecified; I48.0 Paroxysmal atrial fibrillation; I69.391 Dysphagia following cerebral infarction; Z66 Do not resuscitate; R13.10 Dysphagia, unspecified; Z87.891 Personal history of nicotine dependence; Z79.01 Long term (current) use of anticoagulants; Z79.82 Long term (current) use of aspirin; Z79.899 Other long term (current) drug therapy
CPT/HCPCS: 36415; 71045; 74178; 80053; 82272; 84484; 85025; 85027; 85610; 85730; 86850; 86900; 86901; 93005; 99285; C9113; J1940; J7168; P9017; Q9967

== ENCOUNTER → 2023-01-27 06:38 | Outpatient (BNV) | payer MEDICARE, SELFPAY | PROVIDERS: Admitting Provider Hospitalist; Emergency Provider Emergency Medicine; Visit Provider Internal Medicine Cardiovascular Disease | DX: I44.0 Atrioventricular block, first degree (principal); R94.31 Abnormal electrocardiogram [ECG] [EKG] | CPT/HCPCS: 93010 ==

== ENCOUNTER → 2023-01-27 09:47 | Outpatient (BNV) | payer MEDICARE, SELFPAY | PROVIDERS: Admitting Provider Hospitalist; Emergency Provider Emergency Medicine; Visit Provider Hospitalist | DX: K92.2 Gastrointestinal hemorrhage, unspecified (principal); I48.0 Paroxysmal atrial fibrillation; I10 Essential (primary) hypertension | CPT/HCPCS: 99223; 99232; 99239 ==

== ENCOUNTER 2023-02-01 07:59 | Outpatient (REF) | payer MEDICARE, SELFPAY ==
[2023-02-01 08:02] LABS: MANUAL DIFF FLAG NO
[2023-02-01 08:21] LABS: Basophils Percent Auto 0.4 % (0-2); Eosinophils Absolute Auto 0.2 X10*3/uL (0.0-0.4); Eosinophils Percent Auto 3.4 % (0-4); Hematocrit 23.7 % (42.0-52.0); Hemoglobin 7.5 g/dl (14.0-18.0); Imm Gran Abs Auto 0.09 X10*3/uL (0.00-0.03); Imm Gran Pct Auto 1.3 % (0.0-0.4); Lymphocytes Percent Auto 13.9 % (20-40); Mean Corpuscular HGB Conc 31.6 g/dl (31.0-36.0); Mean Corpuscular Hemoglobin 29.3 pg (27.0-33.0); Mean Corpuscular Volume 92.6 fL (80.0-98.0); Mean Platelet Volume 10.9 fL (9.4-12.4); Monocytes Absolute Auto 0.9 X10*3/uL (0.1-1.2); Neutrophils Absolute Auto 4.8 x10*3/uL (2.0-8.3); Platelet Count 150 X10*3/uL (160-400); Red Blood Count 2.56 X10*6/uL (4.60-5.80); Red Cell Distribution Width 16.7 % (11.0-16.0); White Blood Count 7.1 X10*3/uL (4.8-10.8)
[2023-02-01 08:51] LABS: Alanine Aminotransferase 23 U/L (0-40); Albumin Level 3.6 g/dL (3.5-5.0); Alkaline Phosphatase 105 U/L (39-117); Anion Gap 14 (12-20); Aspartate Amino Transferase 34 U/L (5-37); Bilirubin Total 0.3 mg/dL (0.0-1.0); Blood Urea Nitrogen 63 mg/dL (9-16); Calcium 8.5 mg/dL (8.4-10.2); Carbon Dioxide 27 mmol/L (22-29); Chloride 107 mmol/L (96-108); Estimated Glomerular Filt Rate > 60; Glucose Random 128 mg/dL (60-115); Potassium 3.6 mmol/L (3.3-5.1); Sodium 144 mmol/L (135-145); Total Protein 6.6 g/dL (6.5-8.0)
== END 2023-02-01 08:00 | disposition home or self-care (01) ==
LOC: HO.HSH3W 07:59
PROVIDERS: Visit Provider Nurse Practitioner Acute Care
DX: K92.2 Gastrointestinal hemorrhage, unspecified (principal)
CPT/HCPCS: 36415; 80053; 85025

== ENCOUNTER 2023-02-05 05:05 | Outpatient (REF) | payer MEDICARE, SELFPAY ==
[2023-02-05 06:31] LABS: MANUAL DIFF FLAG NO
[2023-02-05 06:40] LABS: Basophils Percent Auto 0.6 % (0-2); Eosinophils Absolute Auto 0.3 X10*3/uL (0.0-0.4); Hematocrit 21.8 % (42.0-52.0); Imm Gran Abs Auto 0.11 X10*3/uL (0.00-0.03); Imm Gran Pct Auto 1.6 % (0.0-0.4); Lymphocytes Percent Auto 14.2 % (20-40); Mean Corpuscular HGB Conc 31.7 g/dl (31.0-36.0); Mean Corpuscular Hemoglobin 29.5 pg (27.0-33.0); Mean Corpuscular Volume 93.2 fL (80.0-98.0); Mean Platelet Volume 10.9 fL (9.4-12.4); Monocytes Absolute Auto 0.9 X10*3/uL (0.1-1.2); Monocytes Percent Auto 13.7 % (2-11); Neutrophils Absolute Auto 4.5 x10*3/uL (2.0-8.3); Neutrophils Percent Auto 65.9 % (45-73); Platelet Count 193 X10*3/uL (160-400); Red Blood Count 2.34 X10*6/uL (4.60-5.80); Red Cell Distribution Width 16.6 % (11.0-16.0); White Blood Count 6.8 X10*3/uL (4.8-10.8)
[2023-02-05 07:56] LABS: Hemoglobin 6.9 g/dl (14.0-18.0)
== END 2023-02-05 05:06 | disposition home or self-care (01) ==
LOC: HO.HSH3W 05:05
PROVIDERS: Visit Provider Nurse Practitioner Acute Care
DX: K92.2 Gastrointestinal hemorrhage, unspecified (principal)
CPT/HCPCS: 36415; 85025

== ENCOUNTER 2023-02-06 18:19 | Outpatient (REF) | payer MEDICARE, SELFPAY ==
[2023-02-06 18:24] LABS: OBS Int Ctl Valid YES; OBS1 POSITIVE (NEGATIVE)
== END 2023-02-06 18:20 | disposition home or self-care (01) ==
LOC: HO.HSH3W 18:19
PROVIDERS: Visit Provider Internal Medicine Interventional Cardiology
DX: D64.9 Anemia, unspecified (principal); K92.2 Gastrointestinal hemorrhage, unspecified
CPT/HCPCS: 82272

== ENCOUNTER 2023-02-07 04:59 | Outpatient (REF) | payer MEDICARE, SELFPAY ==
[2023-02-07 05:53] LABS: MANUAL DIFF FLAG NO
[2023-02-07 05:57] LABS: Basophils Absolute Auto 0.1 X10*3/uL (0.0-0.2); Basophils Percent Auto 0.8 % (0-2); Eosinophils Absolute Auto 0.3 X10*3/uL (0.0-0.4); Eosinophils Percent Auto 4.5 % (0-4); Hematocrit 23.7 % (42.0-52.0); Hemoglobin 7.4 g/dl (14.0-18.0); Imm Gran Abs Auto 0.08 X10*3/uL (0.00-0.03); Imm Gran Pct Auto 1.2 % (0.0-0.4); Immature Retic Fraction 33.3 % (2.3-13.4); Lymphocytes Absolute Auto 0.9 X10*3/uL (1.2-4.9); Lymphocytes Percent Auto 14.6 % (20-40); Mean Corpuscular HGB Conc 31.2 g/dl (31.0-36.0); Mean Corpuscular Hemoglobin 29.2 pg (27.0-33.0); Mean Corpuscular Volume 93.7 fL (80.0-98.0); Mean Platelet Volume 10.7 fL (9.4-12.4); Monocytes Absolute Auto 0.9 X10*3/uL (0.1-1.2); Monocytes Percent Auto 14.1 % (2-11); Neutrophils Absolute Auto 4.2 x10*3/uL (2.0-8.3); Neutrophils Percent Auto 64.8 % (45-73); Platelet Count 246 X10*3/uL (160-400); Red Blood Count 2.53 X10*6/uL (4.60-5.80); Red Cell Distribution Width 16.3 % (11.0-16.0); Retic HGB Equivalent 24.7 pg (30.0-35.0); Reticulocyte Percent 3.1 % (0.5-1.8); Reticulocytes Absolute 0.078 X10*6/uL (0.026-0.095); White Blood Count 6.5 X10*3/uL (4.8-10.8)
[2023-02-07 06:15] LABS: Iron 37 mcg/dL (45-160); Percent Iron Saturation 16 % (15-50); Total Iron Binding Capacity 230 mcg/dL (228-428); Unsaturated Iron Binding 193 ug/dL
[2023-02-07 06:50] LABS: Folate 8.8 ng/mL (> or = 4.0)
[2023-02-07 12:29] LABS: OBS Int Ctl Valid YES; OBS1 POSITIVE (NEGATIVE)
== END 2023-02-07 05:00 | disposition home or self-care (01) ==
LOC: HO.HSH3W 04:59
PROVIDERS: Visit Provider Internal Medicine Interventional Cardiology
DX: D64.9 Anemia, unspecified (principal); K92.2 Gastrointestinal hemorrhage, unspecified
CPT/HCPCS: 36415; 82272; 82746; 83540; 85025; 85045

== ENCOUNTER 2023-02-07 11:03 | Outpatient (AMB) | payer OTHER, SELFPAY ==
--- NOTE | 2023-02-07 11:03 | HO.VETSHOME ---
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 Required: No Allergies No Known Allergies Allergy (Verified 02/07/23 21:10) Medication List - Last Reconciled 02/07/23 by JOSELUIS Kovacs acetaminophen 640 mg PO Q8H PRN albuterol sulfate 90 mcg/actuation 2 puffs inhalation Q4H PRN amlodipine 5 mg See Protocol feeding tube DAILY aspirin 81 mg G-tube DAILY atorvastatin 40 mg G-tube BEDTIME carboxymethylcellulose sodium 1% 1 drp ophthalmic (eye) TID docusate sodium 50 mg feeding tube DAILY esomeprazole magnesium 20 mg feeding tube DAILY hyoscyamine sulfate 0.125 mg sublingual Q4H PRN ipratropium bromide 17 mcg/actuation 2 puffs inhalation QID loperamide 4mg initial dose at onset of diarrhea; 2 mg per feeding tube QID as needed for diarrhea after initial 4mg dose; MAX 4 TABS/24 HRS loratadine 10 mg feeding tube DAILY lorazepam 0.5 mg PO BID lorazepam 0.5 mg PO DAILY PRN magnesium hydroxide 30 mL PO BEDTIME PRN methocarbamol 500 mg PO BID PRN ondansetron HCl 4 mg PO Q8H PRN polyvinyl alcohol 1.4% 1 drp ophthalmic (eye) DAILY PRN sennosides (senna) 8.6 mg feeding tube DAILY sertraline 25 mg feeding tube DAILY sodium chloride 0.65% 2 sprays intranasal DAILY PRN HPI HPI Comments History of Present Illness Details Missael is a very pleasant 87 year old male patient who [facility] He has a past medical history of peritonitis, paroxysmal atrial fibrillation, left pontine stroke, COPD, diabetes, and hypertension. He is being followed up on today for his longstanding lower urinary tract symptoms and history of urinary retention. In discussion with the staff at the [facility] as well as the patient it appears patient is experiencing more urinary frequency, urinary dribbling, nocturia, and incontinent episodes. In discussion with the patient today he discusses his urination being like a leaky pipe however continues to perseverate and believing that health care members just want him in the hospital so that they can make money. He also feels his main concern is his hematochezia. In discussion with the staff today patient has recently been hospitalized for his hematochezia and is currently undergoing surveillance monitoring verses possible surgical intervention. Discussed obtaining PSA, and retroperitoneal ultrasound for further assessment evaluation however given patient's mental status at this time is unlikely that he will undergo these treatment options. Discussed trial of medications to assist with lower urinary tract symptoms however again patient is reluctant to trying medications at this time. Recommendations were made and patient's treatment options were discussed at length on 2 different occasions with the patient in his room today. Discussed at length potential causes for lower urinary tract symptoms patient is experiencing. In discussion with the staff it appears his healthcare proxy/friend is coming in today to further assess and assist with patient's plan of care regarding his health and well-being. When asked patient denies hematuria, dysuria, foul smelling urine, flank pain, fever, and or chills. He discusses utilizing urinal to void however at times is also incontinent. In review of patient's chart it appears he had previously been on finasteride and terazosin however it is unclear to when these medications were stopped and or if the patient was ever on these medications. Nursing discusses if and when medications are initiated to be aware that patient takes medication via G-tube as he has a past medical history of a stroke with impaired swallowing/dysphagia. [facility] Medical History Malfunction of gastrostomy tube Complication of feeding tube Peritonitis Paroxysmal atrial fibrillation Left pontine stroke COPD (chronic obstructive pulmonary disease) Smoker Diabetes mellitus Hypertension Stroke Social History Household Members: Other Housing: Longterm Housing Other:: [facility] Do you presently have visiting nurse or other home services: Yes Alcohol intake: never Comment: stroke protocol Patient Tobacco Use Status: Former Tobacco user Quit Date: 01/2021 Tobacco use type: Cigarette Advance Directives Date on File: 04/20/21 service: Yes Current occupational status: retired Review of Systems Const Reports as per HPI Eyes Reports no additional complaints ENT Reports as per HPI Card Reports as per HPI Resp Reports as per HPI GI Reports as per HPI Reports as per HPI Neuro Reports as per HPI Psych Reports as per HPI Endo Reports as per HPI Physical Exam Const General: comfortable, no acute distress, well developed, alert and awake Nutritional Appearance: thin Orientation/consciousness: oriented to person Limitations: wheelchair HEENT Head: Yes normal to inspection Eyes General: appearance normal, both eyes and all related structures Chest Chest palpation & inspection: normal inspection of the chest Resp Effort & Inspection: normal respiratory effort and able to speak in complete sentences GI Other: G-tube present Inspection: Yes normal to inspection General: Yes deferred Neuro General: oriented to person Extrem General: Yes normal to inspection Psych Appearance: grossly normal and well kempt Speech and movement: Clear speech present Affect: Other affect and mood findings present (Patient is somewhat agitated throughout today's assessment) Thought process: Perseverating thought process present Insight: Poor insight present (Psych) Judgement: Poor judgement present (Psych) Assessment & Plan Assessment & Plan (1) Urine retention: Code(s): R33.9 - Retention of urine, unspecified (2) Urinary frequency: Code(s): R35.0 - Frequency of micturition (3) Urinary incontinence: Code(s): R32 - Unspecified urinary incontinence (4) Nocturia: Code(s): R35.1 - Nocturia (5) Urinary dribbling: Code(s): N39.43 - Post-void dribbling Plan Recommendations made for: Obtaining PSA. Obtaining retroperitoneal ultrasound for further assessment evaluation. Bladder scan patient Q shift and trending/tracking PVRs Discussed med management; patient no longer on finasteride and terazosin it is unclear if and when the patient had stop taking these medications however patient is currently no open to wanting any new medications at this time. Follow-up in 1 month if patient would like to have urological treatment plan; or sooner with any questions, concerns, and or issues. Patient Instructions: The patient had an opportunity to ask questions regarding the treatment plan. All questions were answered. Physical exam, labs, and imaging were discussed and reviewed in detail. As well as risks, benefits, and discussion of treatment choices. No major barriers to understanding were identified. The patient expressed understanding and agreement with the above treatment plan. The patient was made aware they should contact our office by phone for worsening of their current condition, the appearance of new symptoms, or with any questions or concerns. Compliance is encouraged with any medications and follow up testing that is ordered. It is a privilege to be allowed the opportunity to participate in? your urological care.? Again, if you have any questions or concerns If you have any questions or concerns please do not hesitate to contact me. The office is [phone]. This note is constructed using voice recognition software. While every effort has been made to ensure accuracy television agent errors may have been included. Yours sincerely, JOSELUIS Kovacs Coding Level of Care Code 21377-Gvnh Fac sub, mod Diagnoses Urine retention R33.9 Urinary frequency R35.0 Urinary incontinence R32 Nocturia R35.1 Urinary dribbling N39.43 Time Spent (min) 35
== END 2023-02-07 16:00 ==
PROVIDERS: PCP Family Medicine; Visit Provider Nurse Practitioner Family
DX: R33.9 Retention of urine, unspecified (principal); R35.0 Frequency of micturition; R32 Unspecified urinary incontinence; R35.1 Nocturia; N39.43 Post-void dribbling
CPT/HCPCS: 99309

== ENCOUNTER 2023-03-06 11:11 | Outpatient (REF) | payer MEDICARE, SELFPAY ==
[2023-03-06 11:26] LABS: Appearance Urine Clear; Color Urine Yellow; Glucose Urine UA Negative (Negative); Leukocyte Esterase Urine Negative (Negative); Nitrite Urine Negative (Negative); PH 8.5 (5.0-9.0); Specific Gravity - Urine 1.015 (1.005-1.025); Urine Blood Negative (Negative); Urine Ketones Negative (Negative); Urine Protein Negative (Neg-Trace)
[2023-03-06 11:30] LABS: Bacteria Urine None Seen (None Seen); Hyaline Casts Urine 0-2 /LPF (0-2); RBC Urine 0-2 /HPF (0-2); Squamous Epithelial Cell Urine 0-2 /HPF (0-2); WBC Urine 0-5 /HPF (0-5)
== END 2023-03-06 11:12 | disposition home or self-care (01) ==
LOC: HO.HSH3W 11:11
PROVIDERS: Visit Provider Nurse Practitioner Acute Care
DX: R41.82 Altered mental status, unspecified (principal)
CPT/HCPCS: 81001

== ENCOUNTER 2023-03-07 05:02 | Outpatient (REF) | payer MEDICARE, SELFPAY ==
[2023-03-07 06:19] LABS: MANUAL DIFF FLAG NO
[2023-03-07 06:31] LABS: Basophils Absolute Auto 0.1 X10*3/uL (0.0-0.2); Basophils Percent Auto 0.8 % (0-2); Eosinophils Absolute Auto 0.2 X10*3/uL (0.0-0.4); Eosinophils Percent Auto 3.5 % (0-4); Hematocrit 24.9 % (42.0-52.0); Hemoglobin 7.7 g/dl (14.0-18.0); Imm Gran Abs Auto 0.07 X10*3/uL (0.00-0.03); Imm Gran Pct Auto 1.1 % (0.0-0.4); Lymphocytes Absolute Auto 0.8 X10*3/uL (1.2-4.9); Lymphocytes Percent Auto 11.7 % (20-40); Mean Corpuscular HGB Conc 30.9 g/dl (31.0-36.0); Mean Corpuscular Hemoglobin 27.4 pg (27.0-33.0); Mean Corpuscular Volume 88.6 fL (80.0-98.0); Mean Platelet Volume 10.2 fL (9.4-12.4); Monocytes Absolute Auto 0.9 X10*3/uL (0.1-1.2); Neutrophils Absolute Auto 4.6 x10*3/uL (2.0-8.3); Neutrophils Percent Auto 68.9 % (45-73); Platelet Count 288 X10*3/uL (160-400); Red Blood Count 2.81 X10*6/uL (4.60-5.80); Red Cell Distribution Width 16.6 % (11.0-16.0); White Blood Count 6.6 X10*3/uL (4.8-10.8)
[2023-03-07 06:42] LABS: Anion Gap 13 (12-20); Blood Urea Nitrogen 29 mg/dL (9-16); Calcium 8.6 mg/dL (8.4-10.2); Carbon Dioxide 24 mmol/L (22-29); Chloride 106 mmol/L (96-108); Estimated Glomerular Filt Rate > 60; Glucose Random 134 mg/dL (60-115); Potassium 4.4 mmol/L (3.3-5.1); Sodium 139 mmol/L (135-145)
== END 2023-03-07 05:03 | disposition home or self-care (01) ==
LOC: HO.HSH3W 05:02
PROVIDERS: Visit Provider Internal Medicine Interventional Cardiology
DX: D64.9 Anemia, unspecified (principal); R41.82 Altered mental status, unspecified
CPT/HCPCS: 36415; 80048; 85025

== ENCOUNTER 2023-03-08 11:36 | Outpatient (REF) | payer MEDICARE, SELFPAY ==
[2023-03-08 11:55] LABS: Immature Retic Fraction 30.2 % (2.3-13.4); Retic HGB Equivalent 25.3 pg (30.0-35.0); Reticulocyte Percent 2.6 % (0.5-1.8); Reticulocytes Absolute 0.083 X10*6/uL (0.026-0.095)
[2023-03-08 12:09] LABS: Iron 33 mcg/dL (45-160); Percent Iron Saturation 12 % (15-50); Total Iron Binding Capacity 275 mcg/dL (228-428); Unsaturated Iron Binding 242 ug/dL
[2023-03-08 12:24] LABS: Ferritin 75 ng/mL (20-250)
[2023-03-08 12:44] LABS: Folate 8.8 ng/mL (> or = 4.0)
== END 2023-03-08 11:37 | disposition home or self-care (01) ==
LOC: HO.HSH3W 11:36
PROVIDERS: Visit Provider Internal Medicine Interventional Cardiology
DX: D64.9 Anemia, unspecified (principal)
CPT/HCPCS: 36415; 82728; 82746; 83540; 85045

== ENCOUNTER 2023-03-14 05:04 | Outpatient (REF) | payer MEDICARE, SELFPAY ==
[2023-03-14 06:09] LABS: MANUAL DIFF FLAG NO
[2023-03-14 06:13] LABS: Basophils Absolute Auto 0.1 X10*3/uL (0.0-0.2); Eosinophils Absolute Auto 0.3 X10*3/uL (0.0-0.4); Eosinophils Percent Auto 4.2 % (0-4); Hemoglobin 8.3 g/dl (14.0-18.0); Imm Gran Abs Auto 0.07 X10*3/uL (0.00-0.03); Imm Gran Pct Auto 1.1 % (0.0-0.4); Lymphocytes Absolute Auto 1.1 X10*3/uL (1.2-4.9); Lymphocytes Percent Auto 17.4 % (20-40); Mean Corpuscular HGB Conc 30.7 g/dl (31.0-36.0); Mean Corpuscular Hemoglobin 27.1 pg (27.0-33.0); Mean Corpuscular Volume 88.2 fL (80.0-98.0); Mean Platelet Volume 10.4 fL (9.4-12.4); Monocytes Absolute Auto 0.7 X10*3/uL (0.1-1.2); Monocytes Percent Auto 11.8 % (2-11); Neutrophils Percent Auto 64.5 % (45-73); Platelet Count 325 X10*3/uL (160-400); Red Blood Count 3.06 X10*6/uL (4.60-5.80); White Blood Count 6.3 X10*3/uL (4.8-10.8)
== END 2023-03-14 05:05 | disposition home or self-care (01) ==
LOC: HO.HSH3W 05:04
PROVIDERS: Visit Provider Nurse Practitioner Acute Care
DX: D64.9 Anemia, unspecified (principal)
CPT/HCPCS: 36415; 85025

== ENCOUNTER 2023-05-07 06:55 | Outpatient (REF) | payer MEDICARE, SELFPAY ==
[2023-05-07 06:57] LABS: MANUAL DIFF FLAG NO
[2023-05-07 07:12] LABS: Basophils Absolute Auto 0.1 X10*3/uL (0.0-0.2); Basophils Percent Auto 0.9 % (0-2); Eosinophils Absolute Auto 0.2 X10*3/uL (0.0-0.4); Eosinophils Percent Auto 4.1 % (0-4); Hematocrit 29.2 % (42.0-52.0); Hemoglobin 9.1 g/dl (14.0-18.0); Imm Gran Abs Auto 0.07 X10*3/uL (0.00-0.03); Imm Gran Pct Auto 1.3 % (0.0-0.4); Lymphocytes Absolute Auto 0.9 X10*3/uL (1.2-4.9); Lymphocytes Percent Auto 15.2 % (20-40); Mean Corpuscular HGB Conc 31.2 g/dl (31.0-36.0); Mean Corpuscular Hemoglobin 26.8 pg (27.0-33.0); Mean Corpuscular Volume 86.1 fL (80.0-98.0); Mean Platelet Volume 10.9 fL (9.4-12.4); Monocytes Absolute Auto 0.7 X10*3/uL (0.1-1.2); Monocytes Percent Auto 12.7 % (2-11); Neutrophils Absolute Auto 3.7 x10*3/uL (2.0-8.3); Neutrophils Percent Auto 65.8 % (45-73); Platelet Count 181 X10*3/uL (160-400); Red Blood Count 3.39 X10*6/uL (4.60-5.80); Red Cell Distribution Width 19.2 % (11.0-16.0); White Blood Count 5.6 X10*3/uL (4.8-10.8)
[2023-05-07 08:03] LABS: Ferritin 97 ng/mL (20-250)
== END 2023-05-07 06:56 | disposition home or self-care (01) ==
LOC: HO.HSH3W 06:55
PROVIDERS: Visit Provider Internal Medicine
DX: D64.9 Anemia, unspecified (principal); Z91.81 History of falling
CPT/HCPCS: 36415; 82728; 85025

== ENCOUNTER 2023-05-21 07:26 | Outpatient (REF) | payer MEDICARE, SELFPAY ==
[2023-05-21 07:40] LABS: MANUAL DIFF FLAG NO
[2023-05-21 07:44] LABS: Basophils Absolute Auto 0.1 X10*3/uL (0.0-0.2); Basophils Percent Auto 0.7 % (0-2); Eosinophils Absolute Auto 0.3 X10*3/uL (0.0-0.4); Eosinophils Percent Auto 4.3 % (0-4); Hematocrit 30.5 % (42.0-52.0); Hemoglobin 9.6 g/dl (14.0-18.0); Imm Gran Abs Auto 0.07 X10*3/uL (0.00-0.03); Lymphocytes Absolute Auto 1.2 X10*3/uL (1.2-4.9); Lymphocytes Percent Auto 17.4 % (20-40); Mean Corpuscular HGB Conc 31.5 g/dl (31.0-36.0); Mean Corpuscular Hemoglobin 27.4 pg (27.0-33.0); Mean Corpuscular Volume 86.9 fL (80.0-98.0); Mean Platelet Volume 10.8 fL (9.4-12.4); Monocytes Absolute Auto 0.9 X10*3/uL (0.1-1.2); Monocytes Percent Auto 13.8 % (2-11); Neutrophils Absolute Auto 4.3 x10*3/uL (2.0-8.3); Neutrophils Percent Auto 62.8 % (45-73); Platelet Count 243 X10*3/uL (160-400); Red Blood Count 3.51 X10*6/uL (4.60-5.80); White Blood Count 6.8 X10*3/uL (4.8-10.8)
== END 2023-05-21 07:27 | disposition home or self-care (01) ==
LOC: HO.HSH3W 07:26
PROVIDERS: PCP Nurse Practitioner Acute Care; Visit Provider Nurse Practitioner Acute Care
DX: D64.9 Anemia, unspecified (principal); K62.5 Hemorrhage of anus and rectum
CPT/HCPCS: 36415; 85025

== ENCOUNTER 2023-06-21 10:20 | Outpatient (AMB) | payer MEDICARE, SELFPAY ==
--- NOTE | 2023-06-21 10:44 | MHC.OFFVIS ---
Intake Visit Reasons: G-Tube replacement Intake Note: This patient presents for an assessment for G-Tube replacement. Pt c/o; reports no complaints. 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: No Accompanied by: Other Relationship Allergies No Known Allergies Allergy (Verified 06/21/23 10:50) Medication List - Last Reconciled 06/21/23 by Gael Campos MD acetaminophen 640 mg PO Q8H PRN albuterol sulfate 90 mcg/actuation 2 puffs inhalation Q4H PRN amlodipine 5 mg See Protocol feeding tube DAILY aspirin 81 mg G-tube DAILY atorvastatin 40 mg G-tube BEDTIME carboxymethylcellulose sodium 1% 1 drp ophthalmic (eye) TID docusate sodium 50 mg feeding tube DAILY esomeprazole magnesium 20 mg feeding tube DAILY guaifenesin 200 mg PO Q4H PRN hydroxyzine HCl 25 mg feeding tube BEDTIME hyoscyamine sulfate 0.125 mg sublingual Q4H PRN ipratropium bromide 17 mcg/actuation 2 puffs inhalation QID loperamide 4mg initial dose at onset of diarrhea; 2 mg per feeding tube QID as needed for diarrhea after initial 4mg dose; MAX 4 TABS/24 HRS loratadine 10 mg feeding tube DAILY lorazepam 0.5 mg PO BID lorazepam 0.5 mg PO DAILY PRN magnesium hydroxide 30 mL PO BEDTIME PRN methocarbamol 500 mg PO BID PRN ondansetron HCl 4 mg PO Q8H PRN oseltamivir 75 mg PO DAILY polyvinyl alcohol 1.4% 1 drp ophthalmic (eye) DAILY PRN sennosides (senna) 8.6 mg feeding tube DAILY sertraline 25 mg feeding tube DAILY sodium chloride 0.65% 2 sprays intranasal DAILY PRN HPI HPI G-Tube replacement: Details: 88-year-old male here for a PEG tube placement. He had a PEG placed by Dr. Fleming in 2021 because of dysphagia from CVA. He has had no problems with the PEG feeds. [facility]. [facility] Medical History (Updated 06/21/23 @ 11:06 by Gael Campos MD) Gastrostomy tube in place Malfunction of gastrostomy tube Complication of feeding tube Peritonitis Paroxysmal atrial fibrillation Left pontine stroke COPD (chronic obstructive pulmonary disease) Smoker Diabetes mellitus Hypertension Stroke Social History Household Members: Other Housing: [facility] Other:: [facility] Do you presently have visiting nurse or other home services: Yes Alcohol intake: never Comment: stroke protocol Patient Tobacco Use Status: Former Tobacco user Quit Date: 01/2021 Tobacco use type: Cigarette Advance Directives Date on File: 04/20/21 service: Yes Current occupational status: retired Review of Systems Const Denies chills and Denies fever(s) Card Denies chest pain Resp Denies cough GI Denies abdominal pain Denies difficulty urinating Neuro Details: Dysphagia Physical Exam Const Other: On wheelchair General: comfortable and no acute distress Resp Effort & Inspection: normal respiratory effort Cardio Rate: regular rate GI Other: Peg tube in place left upper quadrant Palpation (GI): Soft to palpation, not firm and nontender Assessment & Plan Assessment & Plan (1) Gastrostomy tube in place: Code(s): Z93.1 - Gastrostomy status Category: Medical Plan: I replaced his feeding tube with a Uzbek 18 PEG tube without difficulty. The old feeding tube was removed and was intact. The balloon was inflated to about 9 cc of water He tolerated procedure well. He denies significant complaints He can follow up on a p.r.n. basis. Coding Level of Care Code New Pt Level 3 (48409) Diagnoses Gastrostomy tube in place Z93.1
== END 2023-06-21 11:22 | disposition home or self-care (01) ==
PROVIDERS: PCP Nurse Practitioner Acute Care; Visit Provider Surgery
DX: Z93.1 Gastrostomy status (principal)
CPT/HCPCS: 43762; 99213

== ENCOUNTER → 2023-06-21 10:20 | Outpatient (BNVA) | payer MEDICARE, SELFPAY | PROVIDERS: PCP Nurse Practitioner Acute Care; Visit Provider Surgery | DX: Z43.1 Encounter for attention to gastrostomy (principal) | CPT/HCPCS: 43762; 99212 ==

== ENCOUNTER 2023-06-22 06:41 | Outpatient (REF) | payer MEDICARE, SELFPAY ==
[2023-06-22 07:42] LABS: Anion Gap 13 (12-20); Blood Urea Nitrogen 28 mg/dL (9-16); Calcium 8.6 mg/dL (8.4-10.2); Carbon Dioxide 25 mmol/L (22-29); Chloride 105 mmol/L (96-108); Estimated Glomerular Filt Rate > 60; Glucose Random 114 mg/dL (60-115); Potassium 4.4 mmol/L (3.3-5.1); Sodium 139 mmol/L (135-145)
== END 2023-06-22 06:42 | disposition home or self-care (01) ==
LOC: HO.HSH3W 06:41
PROVIDERS: Visit Provider Nurse Practitioner Acute Care
DX: N18.9 Chronic kidney disease, unspecified (principal); E87.70 Fluid overload, unspecified
CPT/HCPCS: 36415; 80048

== ENCOUNTER 2023-09-24 09:06 | Outpatient (AMB) | payer MEDICARE, SELFPAY ==
--- NOTE | 2023-09-24 09:10 | MHC.OFFVIS ---
Intake Visit Reasons: G-Tube replacement Accompanied by: Self / Same As Patient Allergies No Known Allergies Allergy (Verified 06/21/23 10:50) Medication List - Last Reconciled 09/24/23 by Gael Campos MD acetaminophen 640 mg PO Q8H PRN albuterol sulfate 90 mcg/actuation 2 puffs inhalation Q4H PRN amlodipine 5 mg See Protocol feeding tube DAILY aspirin 81 mg G-tube DAILY atorvastatin 40 mg G-tube BEDTIME carboxymethylcellulose sodium 1% 1 drp ophthalmic (eye) TID docusate sodium 50 mg feeding tube DAILY esomeprazole magnesium 20 mg feeding tube DAILY guaifenesin 200 mg PO Q4H PRN hydroxyzine HCl 25 mg feeding tube BEDTIME hyoscyamine sulfate 0.125 mg sublingual Q4H PRN ipratropium bromide 17 mcg/actuation 2 puffs inhalation QID loperamide 4mg initial dose at onset of diarrhea; 2 mg per feeding tube QID as needed for diarrhea after initial 4mg dose; MAX 4 TABS/24 HRS loratadine 10 mg feeding tube DAILY lorazepam 0.5 mg PO BID lorazepam 0.5 mg PO DAILY PRN magnesium hydroxide 30 mL PO BEDTIME PRN methocarbamol 500 mg PO BID PRN ondansetron HCl 4 mg PO Q8H PRN oseltamivir 75 mg PO DAILY polyvinyl alcohol 1.4% 1 drp ophthalmic (eye) DAILY PRN sennosides (senna) 8.6 mg feeding tube DAILY sertraline 25 mg feeding tube DAILY sodium chloride 0.65% 2 sprays intranasal DAILY PRN HPI HPI G-Tube replacement: Details: He is here for a PEG tube replacement. I had actually changed his peg tube just last May, but this apparently the tube has had some malfunction lately. According to his age, the attachment seems to be loose now and this needs to be changed. The patient otherwise does not report any other issues. [facility] Medical History (Updated 09/24/23 @ 09:32 by Gael Campos MD) PEG tube malfunction Gastrostomy tube in place Malfunction of gastrostomy tube Complication of feeding tube Peritonitis Paroxysmal atrial fibrillation Left pontine stroke COPD (chronic obstructive pulmonary disease) Smoker Diabetes mellitus Hypertension Stroke Social History Household Members: Other Housing: [facility] Other:: [facility] Do you presently have visiting nurse or other home services: Yes Alcohol intake: never Comment: stroke protocol Patient Tobacco Use Status: Former Tobacco user Tobacco use type: Cigarette Advance Directives Date on File: 04/20/21 service: Yes Current occupational status: retired Review of Systems Const Denies chills and Denies fever(s) Card Denies chest pain Resp Denies cough GI Denies abdominal pain Physical Exam Const Other: On wheelchair, frail looking General: comfortable and no acute distress Resp Effort & Inspection: normal respiratory effort Cardio Rate: regular rate GI Other: Peg tube in place Palpation (GI): Soft to palpation, not firm, nontender and no guarding Assessment & Plan Assessment & Plan (1) PEG tube malfunction: Code(s): K94.23 - Gastrostomy malfunction Category: Medical Plan: I replaced the PEG tube with a new gauge 18 replacement tube without difficulty. He tolerated procedure well. I inflated the balloon to about 8 cc He can have his regular PEG tube change every 6 months. He can have the fresh PEG tube used again from here on. Coding Level of Care Code Est Pt Level 3 (93954) Diagnoses PEG tube malfunction K94.23
== END 2023-09-24 09:49 | disposition home or self-care (01) ==
PROVIDERS: PCP Nurse Practitioner Acute Care; Visit Provider Surgery
DX: K94.23 Gastrostomy malfunction (principal)
CPT/HCPCS: 43762; 99213

== ENCOUNTER → 2023-09-24 09:06 | Outpatient (BNVA) | payer MEDICARE, SELFPAY | PROVIDERS: PCP Nurse Practitioner Acute Care; Visit Provider Surgery | DX: K94.23 Gastrostomy malfunction (principal) | CPT/HCPCS: 43762; 99212 ==

== ENCOUNTER 2023-12-20 09:16 | Outpatient (AMB) | payer MEDICARE, SELFPAY ==
--- NOTE | 2023-12-20 09:17 | MHC.OFFVIS ---
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 Allergies No Known Allergies Allergy (Verified 12/20/23 09:34) Medication List - Last Reconciled 12/20/23 by Gael Campos MD acetaminophen 640 mg PO Q8H PRN albuterol sulfate 90 mcg/actuation 2 puffs inhalation Q4H PRN amlodipine 5 mg See Protocol feeding tube DAILY aspirin 81 mg G-tube DAILY atorvastatin 40 mg G-tube BEDTIME carboxymethylcellulose sodium 1% 1 drp ophthalmic (eye) TID docusate sodium 50 mg feeding tube DAILY esomeprazole magnesium 20 mg feeding tube DAILY guaifenesin 200 mg PO Q4H PRN hydroxyzine HCl 25 mg feeding tube BEDTIME hyoscyamine sulfate 0.125 mg sublingual Q4H PRN ipratropium bromide 17 mcg/actuation 2 puffs inhalation QID loperamide 4mg initial dose at onset of diarrhea; 2 mg per feeding tube QID as needed for diarrhea after initial 4mg dose; MAX 4 TABS/24 HRS loratadine 10 mg feeding tube DAILY lorazepam 0.5 mg PO BID lorazepam 0.5 mg PO DAILY PRN magnesium hydroxide 30 mL PO BEDTIME PRN methocarbamol 500 mg PO BID PRN ondansetron HCl 4 mg PO Q8H PRN oseltamivir 75 mg PO DAILY polyvinyl alcohol 1.4% 1 drp ophthalmic (eye) DAILY PRN sennosides (senna) 8.6 mg feeding tube DAILY sertraline 25 mg feeding tube DAILY sodium chloride 0.65% 2 sprays intranasal DAILY PRN HPI HPI G-tube change: Details: [facility]. This has been otherwise working well. There has not been any problems with this with regards to function. He has been tolerating the PEG feeds. He denies any new complaints at this time. 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 Malfunction of gastrostomy tube Complication of feeding tube Peritonitis Paroxysmal atrial fibrillation Left pontine stroke COPD (chronic obstructive pulmonary disease) Smoker Diabetes mellitus Hypertension Stroke Social History Household Members: Other Housing: Long Term Housing Other:: [facility] Do you presently have visiting nurse or other home services: Yes Alcohol intake: never Comment: stroke protocol Patient Tobacco Use Status: Former Tobacco user Tobacco use type: Cigarette Advance Directives Date on File: 04/20/21 service: Yes Current occupational status: retired Review of Systems Const Denies chills and Denies fever(s) Card Denies chest pain at rest Resp Denies cough GI Denies abdominal pain Denies dysuria Physical Exam Const Other: Looks well General: comfortable and no acute distress Resp Effort & Inspection: normal respiratory effort Cardio Rate: regular rate GI Other: Soft, no tenderness, no guarding, peg tube in place Assessment & Plan Assessment & Plan (1) 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 There otherwise has not been any problems with this. It was just has been 3 months since the change this. I changed this without difficulty with a Norwegian 18 angela tube. He tolerated procedure well The PEG tube can be changed every 6-12 months if this is functioning well. 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
== END 2023-12-20 09:34 | disposition home or self-care (01) ==
PROVIDERS: PCP Nurse Practitioner Acute Care; Visit Provider Surgery
DX: Z93.1 Gastrostomy status (principal)
CPT/HCPCS: 99213

== ENCOUNTER → 2023-12-20 09:16 | Outpatient (BNVA) | payer MEDICARE, SELFPAY | PROVIDERS: PCP Nurse Practitioner Acute Care; Visit Provider Surgery | DX: Z46.89 Encounter for fitting and adjustment of other specified devices (principal); Z93.1 Gastrostomy status | CPT/HCPCS: 43762; 99212 ==